=== PATIENT | female | born 1940 | race Caucasian/White ===

== ENCOUNTER 2018-10-07 15:45 | Outpatient (REF) | payer OTHER, SELFPAY ==
[2018-10-07 23:03] LABS: ALT 31 U/L (12-78); AST 27 U/L (15-37); Albumin 3.8 g/dL (3.4-5.0); Alkaline Phosphatase 186 U/L (46-116); Anion Gap 7.6 mmol/L (3-11); BUN 23 mg/dL (7-18); Bilirubin, Total 0.4 mg/dL (0.2-1.0); CO2 33.4 mmol/L (21.0-32.0); CREATININE 0.88 mg/dL (0.55-1.02); Calcium 8.7 mg/dL (8.5-10.1); Chloride 97 mmol/L (98-107); Glucose 102 mg/dL (70-100); Magnesium 1.9 mg/dL (1.8-2.4); Potassium 3.2 mmol/L (3.5-5.1); Sodium 138 mmol/L (136-145); Total Protein 7.3 g/dL (6.4-8.2); Vitamin B12 356 pg/mL (193-986)
== END 2018-10-07 16:05 ==
LOC: NCHCN 15:45
PROVIDERS: PCP Family Medicine; Visit Provider Nurse Practitioner Family
DX: E78.5 Hyperlipidemia, unspecified (principal); I10 Essential (primary) hypertension; R60.0 Localized edema; I82.90 Acute embolism and thrombosis of unspecified vein; Z79.01 Long term (current) use of anticoagulants; E66.9 Obesity, unspecified
CPT/HCPCS: 80053; 82607; 83735

== ENCOUNTER 2018-10-15 14:50 | Outpatient (REF) | payer OTHER, SELFPAY ==
[2018-10-15 15:31] LABS: Potassium 3.7 mmol/L (3.5-5.1)
== END 2018-10-15 15:10 ==
LOC: NCHCN 14:50
PROVIDERS: PCP Family Medicine; Visit Provider Nurse Practitioner Family
DX: E87.6 Hypokalemia (principal)
CPT/HCPCS: 84132

== ENCOUNTER 2019-01-17 11:25 | Outpatient (REF) | payer OTHER, SELFPAY | END 2019-01-17 11:45 | LOC: NCHCN 11:25 | PROVIDERS: PCP Nurse Practitioner Family; Visit Provider Nurse Practitioner Family | DX: R06.09 Other forms of dyspnea; E87.6 Hypokalemia; K21.9 Gastro-esophageal reflux disease without esophagitis; I10 Essential (primary) hypertension | CPT/HCPCS: 84132 ==

== ENCOUNTER 2019-01-22 11:52 | Outpatient (REF) | payer OTHER, SELFPAY ==
[2019-01-22 21:59] LABS: Potassium 3.4 mmol/L (3.5-5.1)
== END 2019-01-22 12:12 ==
LOC: NCHCN 11:52
PROVIDERS: PCP Nurse Practitioner Family; Visit Provider Nurse Practitioner Family
DX: E87.6 Hypokalemia (principal)
CPT/HCPCS: 84132

== ENCOUNTER 2019-01-30 16:19 | Outpatient (REF) | payer OTHER, SELFPAY ==
[2019-01-30 21:32] LABS: Anion Gap 7.4 mmol/L (3-11); BUN 18 mg/dL (7-18); CO2 31.6 mmol/L (21.0-32.0); CREATININE 0.77 mg/dL (0.55-1.02); Calcium 8.7 mg/dL (8.5-10.1); Chloride 103 mmol/L (98-107); Glucose 98 mg/dL (70-100); Potassium 4.1 mmol/L (3.5-5.1); Sodium 142 mmol/L (136-145)
== END 2019-01-30 16:39 ==
LOC: NCHCN 16:19
PROVIDERS: PCP Nurse Practitioner Family; Visit Provider Nurse Practitioner Family
DX: I10 Essential (primary) hypertension (principal)
CPT/HCPCS: 80048

== ENCOUNTER 2019-04-18 13:19 | Outpatient (REF) | payer OTHER, SELFPAY ==
[2019-04-18 21:15] LABS: Calcium 8.9 mg/dL (8.5-10.1); Potassium 3.5 mmol/L (3.5-5.1)
[2019-04-18 21:26] LABS: GGT 35 U/L (5-55)
[2019-04-21 07:53] LABS: Vitamin D 25 Total 17.1 ng/ml (30-100)
== END 2019-04-18 13:39 ==
LOC: NCHCN 13:19
PROVIDERS: PCP Nurse Practitioner Family; Visit Provider Nurse Practitioner Family
DX: I10 Essential (primary) hypertension (principal); E78.5 Hyperlipidemia, unspecified; E87.6 Hypokalemia; R74.8 Abnormal levels of other serum enzymes; R06.09 Other forms of dyspnea; R60.0 Localized edema; K21.9 Gastro-esophageal reflux disease without esophagitis; I82.90 Acute embolism and thrombosis of unspecified vein
CPT/HCPCS: 82306; 82310; 82977; 84100; 84132

== ENCOUNTER 2019-10-27 01:39 | Outpatient (CLI) | payer OTHER, SELFPAY ==
[2019-10-27 12:18] LABS: INR 1.9 (0.9-1.1); Prothrombin Time 19.2 sec (9.3-11.0)
[2019-10-27 12:57] LABS: CREATININE 1.07 mg/dL (0.55-1.02); Calculated LDL 148 mg/dL; Cholesterol 243 mg/dL (<200); Estimated GFR 49.72 (mL/min/1.73m2); HDL Cholesterol 48 mg/dL (40-60); Potassium 3.3 mmol/L (3.5-5.1); Triglyceride 237 mg/dL (<150)
== END 2019-10-27 01:59 ==
PROVIDERS: PCP Nurse Practitioner; Visit Provider Nurse Practitioner
DX: I10 Essential (primary) hypertension (principal); E78.00 Pure hypercholesterolemia, unspecified; Z86.718 Personal history of other venous thrombosis and embolism; Z79.01 Long term (current) use of anticoagulants
CPT/HCPCS: 36415; 80061; 82565; 84132; 85610

== ENCOUNTER 2019-11-06 07:11 | Outpatient (CLI) | payer OTHER, SELFPAY ==
[2019-11-06 11:15] LABS: INR 1.9 (0.9-1.1); Prothrombin Time 18.9 sec (9.3-11.0)
== END 2019-11-06 07:31 ==
PROVIDERS: PCP Nurse Practitioner; Visit Provider Nurse Practitioner
DX: I82.4Z9 Acute embolism and thrombosis of unspecified deep veins of unspecified distal lower extremity (principal); Z79.01 Long term (current) use of anticoagulants
CPT/HCPCS: 36415; 85610

== ENCOUNTER 2019-11-13 08:00 | Outpatient (CLI) | payer OTHER, SELFPAY ==
[2019-11-13 10:26] LABS: Potassium 3.5 mmol/L (3.5-5.1)
[2019-11-13 10:37] LABS: INR 1.6 (0.9-1.1); Prothrombin Time 15.7 sec (9.3-11.0)
== END 2019-11-13 08:20 ==
PROVIDERS: PCP Nurse Practitioner; Visit Provider Nurse Practitioner
DX: E87.6 Hypokalemia (principal); I82.409 Acute embolism and thrombosis of unspecified deep veins of unspecified lower extremity; Z79.01 Long term (current) use of anticoagulants
CPT/HCPCS: 36415; 84132; 85610

== ENCOUNTER 2019-11-20 10:35 | Outpatient (CLI) | payer OTHER, SELFPAY ==
[2019-11-20 11:08] LABS: INR 1.9 (0.9-1.1); Prothrombin Time 18.5 sec (9.3-11.0)
== END 2019-11-20 10:55 ==
PROVIDERS: PCP Nurse Practitioner; Visit Provider Nurse Practitioner
DX: I82.409 Acute embolism and thrombosis of unspecified deep veins of unspecified lower extremity (principal); Z79.01 Long term (current) use of anticoagulants
CPT/HCPCS: 36415; 85610

== ENCOUNTER 2019-11-27 02:23 | Outpatient (CLI) | payer OTHER, SELFPAY ==
[2019-11-27 11:32] LABS: Prothrombin Time 14.4 sec (9.3-11.0)
[2019-11-27 11:55] LABS: INR 1.4 (0.9-1.1)
== END 2019-11-27 02:43 ==
PROVIDERS: PCP Nurse Practitioner; Visit Provider Nurse Practitioner
DX: I82.409 Acute embolism and thrombosis of unspecified deep veins of unspecified lower extremity (principal); Z79.01 Long term (current) use of anticoagulants
CPT/HCPCS: 36415; 85610

== ENCOUNTER 2019-11-28 00:38 | Outpatient (CLI) | payer OTHER, SELFPAY ==
--- NOTE | 2019-11-28 07:39 | DI.MAMMO_ITS ---
EXAM: MG MAMMO SCREENING CLINICAL HISTORY: Screening, Z12.39 TECHNIQUE: Mammograms were interpreted according to the usual protocol including computer analysis w [employer] system, tomosynthesis and C-view imaging. COMPARISON: February 2017 FINDINGS: The breasts are of moderate density with fairly symmetrical distribution of fibroglandular tissue. N o dominant mass or clumped microcalcification is identified in either breast. Current examination is compared with previous examinations including February 2017 and there has been no gross interval change in appearance in comparison with the previous studies. IMPRESSION: No specific evidence of malignancy at this time. Routine screening examinations are suggested at yea rly intervals in this age group according to the ACS/ACR guidelines. Category 1, breast density categ ory B. BI-RADS Cat 1 - Negative Breast Density - Category B - Scattered areas of fibroglandular density
== END 2019-11-28 00:58 ==
PROVIDERS: PCP Nurse Practitioner; Visit Provider Nurse Practitioner
DX: Z12.31 Encounter for screening mammogram for malignant neoplasm of breast (principal)
CPT/HCPCS: 77063; 77067

== ENCOUNTER 2019-12-04 01:10 | Outpatient (CLI) | payer OTHER, SELFPAY ==
[2019-12-04 11:57] LABS: INR 1.6 (0.9-1.1); Prothrombin Time 15.9 sec (9.3-11.0)
== END 2019-12-04 01:30 ==
PROVIDERS: PCP Nurse Practitioner; Visit Provider Nurse Practitioner
DX: I82.409 Acute embolism and thrombosis of unspecified deep veins of unspecified lower extremity (principal); Z79.01 Long term (current) use of anticoagulants
CPT/HCPCS: 36415; 85610

== ENCOUNTER 2019-12-11 02:45 | Outpatient (CLI) | payer OTHER, SELFPAY ==
[2019-12-11 11:47] LABS: INR 2.1 (0.9-1.1); Prothrombin Time 20.6 sec (9.3-11.0)
== END 2019-12-11 03:05 ==
PROVIDERS: PCP Nurse Practitioner; Visit Provider Nurse Practitioner
DX: I82.409 Acute embolism and thrombosis of unspecified deep veins of unspecified lower extremity (principal); Z79.01 Long term (current) use of anticoagulants
CPT/HCPCS: 36415; 85610

== ENCOUNTER 2019-12-18 03:15 | Outpatient (CLI) | payer OTHER, SELFPAY ==
[2019-12-18 11:59] LABS: INR 1.9 (0.9-1.1); Prothrombin Time 18.9 sec (9.3-11.0)
== END 2019-12-18 03:35 ==
PROVIDERS: PCP Nurse Practitioner; Visit Provider Nurse Practitioner
DX: I82.409 Acute embolism and thrombosis of unspecified deep veins of unspecified lower extremity (principal); Z79.01 Long term (current) use of anticoagulants
CPT/HCPCS: 36415; 85610

== ENCOUNTER 2020-01-15 02:27 | Outpatient (CLI) | payer OTHER, SELFPAY ==
[2020-01-15 11:02] LABS: INR 2.1 (0.9-1.1); Prothrombin Time 20.3 sec (9.3-11.0)
== END 2020-01-15 02:47 ==
PROVIDERS: PCP Nurse Practitioner; Visit Provider Nurse Practitioner
DX: I82.409 Acute embolism and thrombosis of unspecified deep veins of unspecified lower extremity (principal); Z79.01 Long term (current) use of anticoagulants
CPT/HCPCS: 36415; 85610

== ENCOUNTER 2020-05-06 16:40 | Outpatient (REF) | payer SELFPAY | END 2020-05-06 17:00 | LOC: LBN 16:40 | PROVIDERS: PCP Nurse Practitioner; Visit Provider Nurse Practitioner | DX: R30.0 Dysuria (principal) | CPT/HCPCS: 87077; 87086; 87186 ==

== ENCOUNTER 2020-05-19 01:28 | Outpatient (CLI) | payer OTHER, SELFPAY ==
[2020-05-19 13:07] LABS: Calculated LDL 121 mg/dL (<100); Cholesterol 218 mg/dL (<200); Estimated GFR 53.76 (mL/min/1.73m2); HDL Cholesterol 45 mg/dL (40-60); Potassium 3.4 mmol/L (3.5-5.1); Triglyceride 261 mg/dL (<150)
[2020-05-19 13:14] LABS: Hemoglobin A1C 5.6 % (3.8-5.6)
== END 2020-05-19 01:48 ==
PROVIDERS: PCP Nurse Practitioner; Visit Provider Nurse Practitioner
DX: I10 Essential (primary) hypertension (principal); E78.5 Hyperlipidemia, unspecified; Z13.1 Encounter for screening for diabetes mellitus
CPT/HCPCS: 36415; 80061; 82565; 83036; 84132

== ENCOUNTER 2020-09-10 08:43 | Outpatient (CLI) | payer OTHER, SELFPAY ==
[2020-09-10 12:37] LABS: INR 1.7 (0.9-1.1); Prothrombin Time 16.7 sec (9.3-11.0)
== END 2020-09-10 09:03 ==
PROVIDERS: PCP Nurse Practitioner; Visit Provider Nurse Practitioner
DX: I82.409 Acute embolism and thrombosis of unspecified deep veins of unspecified lower extremity (principal); Z79.01 Long term (current) use of anticoagulants
CPT/HCPCS: 36415; 85610

== ENCOUNTER 2020-12-29 02:24 | Outpatient (CLI) | payer OTHER, SELFPAY ==
[2020-12-29 12:47] LABS: INR 2.1 (0.9-1.1); Prothrombin Time 20.7 sec (9.3-11.0)
== END 2020-12-29 02:25 | disposition home or self-care (01) ==
LOC: LOS 02:24
PROVIDERS: PCP Nurse Practitioner; Visit Provider Nurse Practitioner
DX: Z79.01 Long term (current) use of anticoagulants (principal); Z86.718 Personal history of other venous thrombosis and embolism
CPT/HCPCS: 36415; 85610

== ENCOUNTER 2021-02-04 01:37 | Outpatient (CLI) | payer OTHER, SELFPAY ==
[2021-02-04 12:44] LABS: INR 2.5 (0.9-1.1); Prothrombin Time 24.5 sec (9.3-11.0)
== END 2021-02-04 01:38 | disposition home or self-care (01) ==
PROVIDERS: PCP Nurse Practitioner; Visit Provider Nurse Practitioner
DX: Z86.718 Personal history of other venous thrombosis and embolism (principal); Z79.01 Long term (current) use of anticoagulants
CPT/HCPCS: 36415; 85610

== ENCOUNTER 2021-03-04 01:47 | Outpatient (CLI) | payer OTHER, SELFPAY ==
[2021-03-04 13:14] LABS: INR 2.1 (0.9-1.1); Prothrombin Time 20.6 sec (9.3-11.0)
== END 2021-03-04 01:48 | disposition home or self-care (01) ==
LOC: LOS 01:48
PROVIDERS: PCP Nurse Practitioner; Visit Provider Nurse Practitioner
DX: Z86.718 Personal history of other venous thrombosis and embolism (principal); Z79.01 Long term (current) use of anticoagulants
CPT/HCPCS: 36415; 85610

== ENCOUNTER 2022-03-31 09:21 | Outpatient (CLI) | payer OTHER, SELFPAY ==
[2022-03-31 12:43] LABS: CREATININE 1.3 mg/dL (0.55-1.02); Calculated LDL 276 mg/dL (<100); Cholesterol 378 mg/dL (<200); Estimated GFR 39.51 (mL/min/1.73m2); HDL Cholesterol 55 mg/dL (40-60); Potassium 4.6 mmol/L (3.5-5.1); Triglyceride 237 mg/dL (<150)
== END 2022-03-31 09:22 | disposition home or self-care (01) ==
LOC: LOS 09:22
PROVIDERS: PCP Nurse Practitioner; Referring Provider Family Medicine; Visit Provider Family Medicine
DX: I10 Essential (primary) hypertension (principal); Z13.6 Encounter for screening for cardiovascular disorders
CPT/HCPCS: 36415; 80061; 82565; 84132

== ENCOUNTER 2022-07-14 17:41 | Outpatient (REF) | payer OTHER, SELFPAY ==
[2022-07-14 19:23] LABS: Anion Gap 10.2 mmol/L (3-11); BUN 30 mg/dL (7-18); CO2 27.8 mmol/L (21.0-32.0); Calculated LDL 141 mg/dL (<100); Chloride 103 mmol/L (98-107); Cholesterol 228 mg/dL (<200); Estimated GFR 56.95 (mL/min/1.73m2); Glucose 91 mg/dL (74-106); HDL Cholesterol 52 mg/dL (40-60); Potassium 3.8 mmol/L (3.5-5.1); Sodium 141 mmol/L (136-145); Triglyceride 178 mg/dL (<150)
== END 2022-07-14 17:42 | disposition home or self-care (01) ==
LOC: NCHCN 17:41
PROVIDERS: PCP Nurse Practitioner; Visit Provider Nurse Practitioner Family
DX: E78.5 Hyperlipidemia, unspecified (principal); I10 Essential (primary) hypertension; Z00.00 Encounter for general adult medical examination without abnormal findings
CPT/HCPCS: 80048; 80061

== ENCOUNTER 2022-10-25 11:25 | Outpatient (REF) | payer OTHER, SELFPAY ==
[2022-10-25 13:22] LABS: Bilirubin Negative (Negative); Blood Trace-lysed (Negative); Clarity Sl Cloudy (Clear); Glucose Negative (Negative); Ketones Negative (Negative); Leukocyte Esterase Negative (Negative); Nitrite Negative (Negative); Specific Gravity 1.015 (1.005-1.025); Urobilinogen 0.2 EU/dL (Up TO 0.2); pH 5.5 (5-8)
[2022-10-25 13:31] LABS: Bacteria Rare HPF (Negative); C & S Indicated? No; Casts Negative LPF (Negative); Crystals Moderate Amorphous HPF (Negative); Epithelial Cells Moderate HPF (Negative); Mucus Trace (Negative); RBC 0-2 HPF (0-2); WBC Negative HPF (0-5)
== END 2022-10-25 11:26 | disposition home or self-care (01) ==
LOC: LBN 11:25
PROVIDERS: PCP Nurse Practitioner Family; Visit Provider Physician Assistant
DX: R39.89 Other symptoms and signs involving the genitourinary system (principal)
CPT/HCPCS: 81003; 81015

== ENCOUNTER 2022-11-05 07:50 | Observation (INO) | payer MEDICARE, OTHER, SELFPAY ==
[2022-11-05] VITALS (57 sets, daily range): BP systolic 105–145; BP diastolic 49–87; PULSE 70–89; RESP 13–25; TEMP 36.5–37.2; O2SAT 94–100
--- NOTE | 2022-11-05 08:45 | RT.EKG_ITS ---
APPROVED REPORT Exam: Resting ECG Reason for Exam: weakness Patient Location: E HR:71 bpm ECG Measurements Heart Rate 71 AXIS WY 187 P 49 QRSd 90 QRS 4 QT 374 T 18 QTc 408 Conclusion Sinus rhythm...normal P axis, V-rate 60- 99
--- NOTE | 2022-11-05 08:58 | W.ED.GENAD ---
Discharge Plan Disposition Patient Disposition: Admit to [facility] Condition: Stable Discharge Details Chief Complaint: Fall/Non TraumaCriteria Clinical Impression: Bilateral leg weakness, Fall, Hypomagnesemia, Subtherapeutic anticoagulation Primary Care Provider: Faustino Berry ED Provider: Patrick Pearson Home Meds and New Rx's Prescriptions: No Action triamterene-hydrochlorothiazid 37.5-25 mg tablet 0.5 tab PO DAILY Qty: 90 4RF esomeprazole magnesium [Nexium] 20 mg capsule,delayed release(DR/EC) 20 mg PO DAILY Qty: 90 3RF potassium chloride 20 mEq tablet extended release 20 meq PO DAILY Qty: 90 4RF lisinopril 20 mg tablet 20 mg PO DAILY Qty: 90 4RF atorvastatin 40 mg tablet 40 mg PO DAILY warfarin 2.5 mg tablet 2.5 mg PO QPM Protocol: Dose Management Condition: Sunday Dose/Route: 2.5 mg Instruction: 1 x 2.5 mg tablet Condition: Sunday Dose/Route: 2.5 mg Instruction: 1 x 2.5 mg tablet Condition: Sunday Dose/Route: 2.5 mg Instruction: 1 x 2.5 mg tablet Condition: Sunday Dose/Route: 2.5 mg Instruction: 1 x 2.5 mg tablet Condition: Dose/Route: 5 mg Instruction: 2 x 2.5 mg tablets Condition: Sunday Dose/Route: 2.5 mg Instruction: 1 x 2.5 mg tablet Condition: Sunday Dose/Route: 2.5 mg Instruction: 1 x 2.5 mg tablet Protocol Text: Adjustment Start Date: 11/02/22 INR Value: 1.5 INR Date: 11/02/22 Recheck Date: 11/16/22 clobetasol-emollient 0.05 % cream 1 applic Topical HS PRN Medical Decision Making 900 --82-year-old female with history of multiple medical problems including hypertension, DVT, on Coumadin, hyperlipidemia, obesity, uses walker at baseline, here with weakness of bilateral lower extremities with 1+ pitting edema. Patient did fall today but has no injury on examination. Patient has no headache, neck pain or back pain or tenderness. Patient is on Coumadin but I suspect her INR will be subtherapeutic as she has been inappropriately taking less Coumadin than prescribed. --Screening EKG was reviewed and interpreted by me: Please report, sinus rhythm 71 bpm, no STEMI, nondiagnostic. 1300 --labs reviewed: Leukocytosis noted. Hypomagnesemia noted. Initial urinalysis was contaminated with epithelial cells despite it being a cath specimen. No significant RBCs or WBCs. A second catheterized specimen was obtained and there were significant RBCs I suspect secondary to trauma of the initial catheterization. Chest x-ray was reviewed and interpreted by radiology: No active disease in the chest. Patient was given magnesium 1 g IV and reassessed and did have improvement in strength although continues have difficulty with ambulation. -- Patient attempted ambulate with nursing and needed assistance. Unable to transition safely to commode. I attempted to contact care management and not available. Plan to hospitalize as observation for PT evaluation. Patient does have hypomagnesemia and subtherapeutic INR. I called and spoke with hospitalist on-call, Dr. Hednerson, discussed ED presentation and course, he will admit the patient. Lab Data Lab results reviewed: Yes I reviewed the patient's lab results. Labs: Laboratory Tests Range/Units 11/05/22 11/05/22 11/05/22 09:08 09:08 09:08 WBC (4.4-10.8) 10^3/uL RBC (3.93-5.22) 10^6/uL Hgb (11.2-15.7) g/dL Hct (36.0-46.0) % MCV (80-95) fL MCH (27.0-33.0) pg MCHC (32.0-36.0) % RDW (11.7-14.6) % Plt Count (130-400) 10^3/uL MPV (8.0-11.0) fL Immature Gran % Neutrophils % Lymphocytes % Monocytes % Eosinophils % Basophils % Nucleated RBC % (0.0-0.3) % Absolute Neutrophils (1.2-6.7) 10^3/uL Absolute Lymphocytes (1.2-3.4) 10^3/uL Absolute Monocytes (0.1-0.8) 10^3/uL Absolute Eosinophils (0.0-0.7) 10^3/uL Absolute Basophils (0.0-0.2) 10^3/uL PT (9.3-11.0) sec 15.7 H INR (0.9-1.1) 1.6 H Sodium (136-145) mmol/L 140 Potassium (3.5-5.1) mmol/L 3.7 Chloride (98-107) mmol/L 106 Carbon Dioxide (21.0-32.0) mmol/L 25.8 Anion Gap (3-11) mmol/L 8.2 BUN (7-18) mg/dL 27 H Creatinine (0.55-1.02) mg/dL 1.1 H Est GFR (CKD-EPI 2020) (mL/min/1.73m2) 50.80 Glucose (74-106) mg/dL 104 Calcium (8.5-10.1) mg/dL 9.1 Magnesium Cancelled 1.7 L Total Bilirubin (0.2-1.0) mg/dL 0.4 AST (15-37) U/L 24 ALT (14-59) U/L 22 Alkaline Phosphatase (46-116) U/L 179 H Troponin I (<or=60) ng/L < 50 NT-Pro-B Natriuret Pep Cancelled 195 Total Protein (6.4-8.2) g/dL 7.0 Albumin (3.4-5.0) g/dL 3.5 Urine Color (Yellow) Urine Clarity (Clear) Urine pH (5-8) Ur Specific [place] (1.005-1.025) Urine Protein (Negative) mg/dL Urine Ketones (Negative) mg/dL Urine Blood (Negative) Urine Nitrite (Negative) Urine Bilirubin (Negative) Urine Urobilinogen (Up TO 0.2) EU/dL Ur Leukocyte Esterase (Negative) Urine RBC (0-2) HPF Urine WBC (0-5) HPF Ur Epithelial Cells (Negative) HPF Urine Crystals (Negative) HPF Urine Bacteria (Negative) HPF Urine Casts (Negative) LPF Urine Mucus (Negative) Ur Culture Indicated? Urine Glucose (Negative) mg/dL Range/Units 11/05/22 11/05/22 11/05/22 09:08 09:30 10:45 WBC (4.4-10.8) 10^3/uL 13.04 H RBC (3.93-5.22) 10^6/uL 3.96 Hgb (11.2-15.7) g/dL 11.7 Hct (36.0-46.0) % 36.2 MCV (80-95) fL 91 MCH (27.0-33.0) pg 29.5 MCHC (32.0-36.0) % 32.3 RDW (11.7-14.6) % 12.5 Plt Count (130-400) 10^3/uL 213 MPV (8.0-11.0) fL 9.3 Immature Gran % 0.4 Neutrophils % 88.4 Lymphocytes % 6.0 Monocytes % 4.8 Eosinophils % 0.2 Basophils % 0.2 Nucleated RBC % (0.0-0.3) % 0.0 Absolute Neutrophils (1.2-6.7) 10^3/uL 11.53 H Absolute Lymphocytes (1.2-3.4) 10^3/uL 0.78 L Absolute Monocytes (0.1-0.8) 10^3/uL 0.63 Absolute Eosinophils (0.0-0.7) 10^3/uL 0.03 Absolute Basophils (0.0-0.2) 10^3/uL 0.03 PT (9.3-11.0) sec INR (0.9-1.1) Sodium (136-145) mmol/L Potassium (3.5-5.1) mmol/L Chloride (98-107) mmol/L Carbon Dioxide (21.0-32.0) mmol/L Anion Gap (3-11) mmol/L BUN (7-18) mg/dL Creatinine (0.55-1.02) mg/dL Est GFR (CKD-EPI 2020) (mL/min/1.73m2) Glucose (74-106) mg/dL Calcium (8.5-10.1) mg/dL Magnesium Total Bilirubin (0.2-1.0) mg/dL AST (15-37) U/L ALT (14-59) U/L Alkaline Phosphatase (46-116) U/L Troponin I (<or=60) ng/L NT-Pro-B Natriuret Pep Total Protein (6.4-8.2) g/dL Albumin (3.4-5.0) g/dL Urine Color (Yellow) Yellow Yellow Urine Clarity (Clear) Clear Sl Cloudy Urine pH (5-8) 5.5 5.5 Ur Specific [place] (1.005-1.025) >= 1.030 H >= 1.030 H Urine Protein (Negative) mg/dL Negative Negative Urine Ketones (Negative) mg/dL Negative Negative Urine Blood (Negative) Trace-intact H Large H Urine Nitrite (Negative) Negative Negative Urine Bilirubin (Negative) Negative Negative Urine Urobilinogen (Up TO 0.2) EU/dL 0.2 0.2 Ur Leukocyte Esterase (Negative) Negative Negative Urine RBC (0-2) HPF 0-2 >50 H Urine WBC (0-5) HPF 3-5 5-10 Ur Epithelial Cells (Negative) HPF Moderate Many Urine Crystals (Negative) HPF Negative Negative Urine Bacteria (Negative) HPF Moderate Moderate Urine Casts (Negative) LPF Negative Negative Urine Mucus (Negative) Trace Trace Ur Culture Indicated? No/Sq. Contamination No/Sq. Contamination Urine Glucose (Negative) mg/dL Negative Negative Range/Units 11/05/22 12:18 WBC (4.4-10.8) 10^3/uL RBC (3.93-5.22) 10^6/uL Hgb (11.2-15.7) g/dL Hct (36.0-46.0) % MCV (80-95) fL MCH (27.0-33.0) pg MCHC (32.0-36.0) % RDW (11.7-14.6) % Plt Count (130-400) 10^3/uL MPV (8.0-11.0) fL Immature Gran % Neutrophils % Lymphocytes % Monocytes % Eosinophils % Basophils % Nucleated RBC % (0.0-0.3) % Absolute Neutrophils (1.2-6.7) 10^3/uL Absolute Lymphocytes (1.2-3.4) 10^3/uL Absolute Monocytes (0.1-0.8) 10^3/uL Absolute Eosinophils (0.0-0.7) 10^3/uL Absolute Basophils (0.0-0.2) 10^3/uL PT (9.3-11.0) sec INR (0.9-1.1) Sodium (136-145) mmol/L Potassium (3.5-5.1) mmol/L Chloride (98-107) mmol/L Carbon Dioxide (21.0-32.0) mmol/L Anion Gap (3-11) mmol/L BUN (7-18) mg/dL Creatinine (0.55-1.02) mg/dL Est GFR (CKD-EPI 2020) (mL/min/1.73m2) Glucose (74-106) mg/dL Calcium (8.5-10.1) mg/dL Magnesium Total Bilirubin (0.2-1.0) mg/dL AST (15-37) U/L ALT (14-59) U/L Alkaline Phosphatase (46-116) U/L Troponin I (<or=60) ng/L < 50 NT-Pro-B Natriuret Pep Total Protein (6.4-8.2) g/dL Albumin (3.4-5.0) g/dL Urine Color (Yellow) Urine Clarity (Clear) Urine pH (5-8) Ur Specific [place] (1.005-1.025) Urine Protein (Negative) mg/dL Urine Ketones (Negative) mg/dL Urine Blood (Negative) Urine Nitrite (Negative) Urine Bilirubin (Negative) Urine Urobilinogen (Up TO 0.2) EU/dL Ur Leukocyte Esterase (Negative) Urine RBC (0-2) HPF Urine WBC (0-5) HPF Ur Epithelial Cells (Negative) HPF Urine Crystals (Negative) HPF Urine Bacteria (Negative) HPF Urine Casts (Negative) LPF Urine Mucus (Negative) Ur Culture Indicated? Urine Glucose (Negative) mg/dL HPI General Mode of arrival: ambulatory. Date/Time Provider Initiated Documentation: 11/05/22 08:07. Limitations to Documentation: no limitations. Information obtained by: patient. HPI Narrative: 82-year-old female presents with chief complaint of weakness. Patient notes lower extremity weakness that started yesterday and has persisted. Worse this morning. Patient notes she has inability to move her legs bilaterally. Legs feel heavy. Symptoms are severe. No modifiers. She states when she tried to get up out of bed today she could not ambulate and fell to the floor. She did bump her head but did not lose consciousness and has had no headache. She denies injury during the fall. She has no neck pain or back pain. Patient uses walker at baseline. Patient does note associated increased swelling of the legs and decreased urination recently. She denies dysuria. Related Data Home Medications Medication Instructions Recorded Confirmed lisinopril 20 mg tablet 20 mg PO DAILY #90 tabs 12/12/21 11/05/22 esomeprazole magnesium 20 mg 20 mg PO DAILY #90 tab-caps 12/27/21 11/05/22 capsule,delayed release (Nexium) potassium chloride 20 mEq 20 meq PO DAILY #90 tabs 01/24/22 11/05/22 tablet,extended release triamterene 37.5 0.5 tab PO DAILY #90 tab-caps 10/26/22 11/05/22 mg-hydrochlorothiazide 25 mg tablet atorvastatin 40 mg tablet 40 mg PO DAILY 11/05/22 11/05/22 clobetasol-emollient 0.05 % 1 applic topical HS PRN 11/05/22 11/05/22 topical cream warfarin 2.5 mg tablet 2.5 mg PO QPM 11/05/22 11/05/22 Previous Rx's Medication Instructions Recorded lisinopril 20 mg tablet 20 mg PO DAILY #90 tabs 12/12/21 esomeprazole magnesium 20 mg 20 mg PO DAILY #90 tab-caps 12/27/21 capsule,delayed release (Nexium) potassium chloride 20 mEq 20 meq PO DAILY #90 tabs 01/24/22 tablet,extended release triamterene 37.5 0.5 tab PO DAILY #90 tab-caps 10/26/22 mg-hydrochlorothiazide 25 mg tablet Allergies Allergy/AdvReac Type Severity Reaction Status Date / Time No Known Allergies Allergy Verified 11/05/22 07:59 General Stated Complaint: Fall/Non TraumaCriteria ELLE: 3 Review of Systems All systems reviewed & are unremarkable except as noted in HPI and below Constitutional Constitutional: Denies chills and Denies fever(s) Comments: Patient did experience episode of diaphoresis last night Eyes Eyes: Denies loss of vision Cardiovascular Cardiovascular: Denies rapid heart rate, Reports leg edema and Denies dyspnea Respiratory Respiratory: Denies dyspnea Gastrointestinal Gastrointestinal: Denies abdominal pain, Denies nausea and Denies vomiting Genitourinary Genitourinary: Reports as per HPI, Denies hematuria, Denies urinary hesitancy and Denies urinary urgency Musculoskeletal Musculoskeletal: Denies tingling Neurologic Neurologic: Reports as per HPI, Reports localized weakness (legs bilateral), Denies loss of vision, Denies sensory deficit and Denies tingling PFSH All Active Problems (Updated 11/05/22 @ 14:46 by Patrick Pearson MD) Bilateral leg weakness (Acute) Fall (Acute) Hypomagnesemia (Acute) Subtherapeutic anticoagulation (Acute) Leg edema, left (Acute) 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 (Chronic) Peripheral neuropathy (Chronic) undetermined etiology. Varicose veins (Chronic) Chronic diarrhea (Chronic) managed with metamucil with good effect. GERD (gastroesophageal reflux disease) (Chronic) Hypertension (Chronic) Chronic anticoagulation (Chronic) History of multiple DVT, goal INR 2-to 3 History of DVT (deep vein thrombosis) (Chronic) Hyperlipidemia (Chronic) Severe obesity (BMI 35.0-39.9) with comorbidity (Chronic) Leg weakness, bilateral (Acute) At risk for falls (Acute) Medical History Adenomatous colon polyp Corns/callosities Eczema Lactose intolerance Onychomycosis Venous stasis dermatitis Surgical History Cholecystectomy January 2005 Colonoscopy - [facility] [place] 2010 exploratory lung surgery 1985 squamous papilloma excision of vocal cord 1998 Vaginal hysterectomy 1984- with bladder lift Family History Mother , age 77 No problems noted. Father , age 67 No problems noted. Brother , age 74 No problems noted. Brother , age 83 No problems noted. Social History Smoking/Tobacco Use Status: Former Tobacco Use tobacco type: cigarettes Quit Date: 11/05/80 Tobacco: How many years used: 20 Smoking risk assessment performed?: Yes Alcohol Intake: never Drug use: Never Household members: other Details: Grandson Housing: house Communication Needs: Corrective Lenses Do you need help understanding health information?: Often Pets and animals: Yes Pets and animals: dog(s) Sexually active: No Do you think of yourself as: straight/heterosexual Current gender identity: female What is your relationship status?: How often do you talk on the phone with friends or family?: three or more times per week How often do you get together with friends or relatives?: three or more times per week How often do you attend denominational or hindu services?: 1-3 times per year Do you belong to any clubs or organized social groups?: no Panel score (0-1 are the most socially isolated patients): 1 What type of physical activity do you participate in: decline to answer Duration: decline to answer Frequency: decline to answer Echo/Judaism: [employer] Special echo needs: No Seatbelt use: always Drive intox or ride w/intox escort car driver: No Do you feel safe at home: Yes Do you feel safe in your relationship?: Yes Exam Const General: cooperative and no acute distress HENMT Mouth: moist mucous membranes Eyes Conjunctivae: normal conjunctivae Sclera: normal sclerae Neck Neck: trachea midline and supple Resp Auscultation: clear to auscultation bilaterally, no rales, no rhonchi and no wheezes Cardio Rate: regular rate and not tachycardic Rhythm: regular rhythm GI Palpation: soft, not firm, no guarding, no masses, not rigid and nontender Skin General skin exam: no rashes or lesions noted Neuro General: patient alert, patient awake and tone normal Cranial Nerves: CN's II-XI intact bilaterally Cognition: normal cognition Motor: strength abnormal (3/5 bilateral LEs) and other (5/5 UEs bilateral) Extrem General: no calf tenderness and edema Laterality: bilateral (1+ pitting) Psych Appearance: grossly normal Mental Status: mental status grossly normal Course Vital Signs Vital signs: Vital Signs Temperature 36.5 C 11/05/22 07:51 Pulse 84 11/05/22 07:51 Respiratory Rate 16 11/05/22 07:51 Blood Pressure 118/64 11/05/22 07:51 Pulse Oximetry 94 11/05/22 07:51 Temperature 36.5 C 11/05/22 07:51 Temperature Source Skin 11/05/22 07:51 Pulse 84 11/05/22 07:51 Respiratory Rate 16 11/05/22 07:51 Respiratory Effort 11/05/22 08:02 Blood Pressure 118/64 11/05/22 07:51 Pulse Oximetry 94 11/05/22 07:51 Oxygen Delivery Method Room Air 11/05/22 07:51 Oxygen Flow Rate 0 11/05/22 07:51 Pain Level 0 11/05/22 07:51
[2022-11-05 09:15] LABS: Abs Immature Grans 0.05 10^3/uL (0.0-0.06); Absolute Basophil Count 0.03 10^3/uL (0.0-0.2); Absolute Lymphocyte Count 0.78 10^3/uL (1.2-3.4); Basophils % 0.2; Eosinophils % 0.2; HCT 36.2 % (36.0-46.0); HGB 11.7 g/dL (11.2-15.7); Immature Grans % 0.4; MCH 29.5 pg (27.0-33.0); MCHC 32.3 % (32.0-36.0); MCV 91 fL (80-95); MPV 9.3 fL (8.0-11.0); Monocytes % 4.8; Neutrophils % 88.4; Platelet Count 213 10^3/uL (130-400); RBC 3.96 10^6/uL (3.93-5.22); RDW 12.5 % (11.7-14.6); RDW-SD 41.6 fL; WBC 13.04 10^3/uL (4.4-10.8)
[2022-11-05 09:20] LABS: Absolute Eosinophil Count 0.03 10^3/uL (0.0-0.7); Absolute Monocyte Count 0.63 10^3/uL (0.1-0.8); Absolute Neutrophil Count 11.53 10^3/uL (1.2-6.7)
[2022-11-05 09:27] LABS: INR 1.6 (0.9-1.1); Prothrombin Time 15.7 sec (9.3-11.0)
[2022-11-05 09:37] LABS: ALT 22 U/L (14-59); AST 24 U/L (15-37); Albumin 3.5 g/dL (3.4-5.0); Alkaline Phosphatase 179 U/L (46-116); Anion Gap 8.2 mmol/L (3-11); BUN 27 mg/dL (7-18); Bilirubin, Total 0.4 mg/dL (0.2-1.0); CO2 25.8 mmol/L (21.0-32.0); CREATININE 1.1 mg/dL (0.55-1.02); Calcium 9.1 mg/dL (8.5-10.1); Chloride 106 mmol/L (98-107); Glucose 104 mg/dL (74-106); Magnesium 1.7 mg/dL (1.8-2.4); NT-proBNP 195 pg/mL (<300); Potassium 3.7 mmol/L (3.5-5.1); Sodium 140 mmol/L (136-145); Troponin I < 50 ng/L (<or=60)
[2022-11-05 09:38] LABS: Bilirubin Negative (Negative); Blood Trace-intact (Negative); Clarity Clear (Clear); Glucose Negative (Negative); Ketones Negative (Negative); Leukocyte Esterase Negative (Negative); Nitrite Negative (Negative); Specific Gravity >= 1.030 (1.005-1.025); Urobilinogen 0.2 EU/dL (Up TO 0.2); pH 5.5 (5-8)
[2022-11-05 09:48] LABS: Bacteria Moderate HPF (Negative); C & S Indicated? No/Sq. Contamination; Casts Negative LPF (Negative); Crystals Negative HPF (Negative); Epithelial Cells Moderate HPF (Negative); Mucus Trace (Negative); RBC 0-2 HPF (0-2)
--- NOTE | 2022-11-05 10:30 | DI.RAD_ITS ---
Exam(s) XR CHEST 2V PA LATERAL EXAM: XR CHEST 2V PA LATERAL CLINICAL HISTORY: weakness, leukocytosis TECHNIQUE: 2D digital imaging was performed. COMPARISON: CR CHEST 2 VIEWS PA,LAT from 04/20/2017 FINDINGS: Exam is limited by underpenetration and patient body habitus. HEART: Normal size. Aorta: Not dilated. PULMONARY VASCULATURE: Normal. LUNGS: Clear. PLEURAL SPACE: No pleural effusion or pneumothorax. BONE:Unremarkable for age. IMPRESSION: No acute abnormality. DATA REPOSITORY: RADIATION DOSE DELIVERED:
[2022-11-05 10:57] LABS: Bilirubin Negative (Negative); Blood Large (Negative); Clarity Sl Cloudy (Clear); Glucose Negative (Negative); Ketones Negative (Negative); Leukocyte Esterase Negative (Negative); Nitrite Negative (Negative); Specific Gravity >= 1.030 (1.005-1.025); Urobilinogen 0.2 EU/dL (Up TO 0.2); pH 5.5 (5-8)
[2022-11-05 11:05] LABS: Bacteria Moderate HPF (Negative); C & S Indicated? No/Sq. Contamination; Casts Negative LPF (Negative); Crystals Negative HPF (Negative); Epithelial Cells Many HPF (Negative); Mucus Trace (Negative); RBC >50 HPF (0-2)
[2022-11-05] MEDS: MAGNESIUM SULFATE 1 GM/100 ML BAG IVPB (11:10)
--- NOTE | 2022-11-05 11:41 | DI.VRAD_ITS ---
PROCEDURE INFORMATION: Exam: XR Chest Exam date and time: 11/05/2022 11:06 AM Age: 82 years old Clinical indication: Other: Weakness, leukocytosis TECHNIQUE: Imaging protocol: Radiologic exam of the chest. Views: 2 views. COMPARISON: CR CHEST 2 VIEWS PA,LAT 04/20/2017 12:23 PM FINDINGS: Lungs: The lungs are clear and well aerated bilaterally. There is no consolidation, infiltrate, or pulmonary edema. The pulmonary vasculature is normal in caliber. Pleural spaces: Unremarkable. No pleural effusion or pneumothorax. Heart/Mediastinum: Heart size is normal. Cardiomediastinal contours are stable and satisfactory. There is scattered atherosclerotic mural calcification in the thoracic aorta. Bones/joints: Degenerative changes. No acute osseous abnormality. IMPRESSION: No active disease in the chest. Dictated and Authenticated by: Krystal Ball MD. Ordering:MIGUEL Nguyen MD
[2022-11-05 12:42] LABS: Troponin I < 50 ng/L (<or=60)
--- NOTE | 2022-11-05 16:01 | W.PM.HP.N ---
Date of service: 11/05/22 Time of Service: 16:02 Assessment and Plan Assessment and plan (1) Bilateral leg weakness: Status: Acute Assessment and plan: ED and patient reports unable to ambulate today - will get a PT consult She was able to walk to the bathroom, without a device, not using the wall or chair to steady herself. She then reclined in the chair without assistance (2) Fall: Status: Acute Assessment and plan: Family reports she is not safe ambulating at home, unable to get up on her own - PT consult Family and patient state the bathroom is too narrow for her to manage getting in without a walker - she would benefit from home health PT and OT. (3) Hypomagnesemia: Status: Acute Assessment and plan: 1.7, repleted will check again tomorrow (4) Subtherapeutic anticoagulation: Status: Acute Assessment and plan: INR 1.6 - therapeutic 2-3 Patient reports she cut the tablets in 1/2 - 2.5 mg tablets - she could not say why she did this. Her daughter was at the bedside and we discussed perhaps the daughter should put the patient's medications in the medication daily am/pm box for her and supervise her medications. She agreed this would be a good idea. She would benefit from nursing (5) GERD (gastroesophageal reflux disease): Status: Chronic Assessment and plan: Chronic, no concerns or complaints - maintain home med regime Esomeprazole 20 mg daily. Qualifiers: Esophagitis presence: esophagitis presence not specified Qualified Code(s): K21.9 - Gastro-esophageal reflux disease without esophagitis (6) Hypertension: Status: Chronic Assessment and plan: Chronic, stable, monitor - continue daily lisinopril 20 mg Qualifiers: Hypertension type: essential hypertension Qualified Code(s): I10 - Essential (primary) hypertension (7) Chronic anticoagulation: Status: Chronic Assessment and plan: INR 1.6 - Warfarin s/t DVT - subtherapeutic @ 1.6 - will adjust coumadin (8) History of DVT (deep vein thrombosis): Status: Chronic Assessment and plan: Managed with coumadin - check INR, leg not swollen, good pulses, pink, warm and dry (9) DVT prophylaxis: Status: Acute Assessment and plan: on Warfarin for DVT (10) Discharge planning issues: Status: Acute Assessment and plan: Once stable home with v SNF Discussed with Dr Henderson. History of Present Illness History of Present Illness Chief Complaint: Weakness Narrative: This is an 82-year-old female who presented to the [facility] ED with chief complaint of weakness.? Patient notes lower extremity weakness that started yesterday and has persisted.? Worse this morning.? Patient notes she has inability to move her legs bilaterally, stating her legs feel heavy.?She states when she tried to get up out of bed today she could not ambulate and fell to the floor.? She did bump her head but did not lose consciousness and has had no headache.? She denies injury during the fall.? She has no neck pain or back pain. Patient uses walker at baseline. Patient does note associated increased swelling of the legs and decreased urination recently.? She denies dysuria. Urine was tested in the ED for infection and it was negative. Labs and xrays are unremarkable, except WBC 13.04 and Mag 1.7, this was repleted in the ED. Family did not feel she was safe to go home, She was placed on the medical floor on observation. Review of Systems All systems reviewed & are unremarkable except as noted in HPI and below PFSH All Active Problems (Updated 11/05/22 @ 16:11 by Roslyn Griffin NP) DVT prophylaxis (Acute) Discharge planning issues (Acute) Bilateral leg weakness (Acute) Fall (Acute) Hypomagnesemia (Acute) Subtherapeutic anticoagulation (Acute) Leg edema, left (Acute) 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 (Chronic) Peripheral neuropathy (Chronic) undetermined etiology. Varicose veins (Chronic) Chronic diarrhea (Chronic) managed with metamucil with good effect. GERD (gastroesophageal reflux disease) (Chronic) Hypertension (Chronic) Chronic anticoagulation (Chronic) History of multiple DVT, goal INR 2-to 3 History of DVT (deep vein thrombosis) (Chronic) Hyperlipidemia (Chronic) Severe obesity (BMI 35.0-39.9) with comorbidity (Chronic) Leg weakness, bilateral (Acute) At risk for falls (Acute) Medical History Adenomatous colon polyp Corns/callosities Eczema Lactose intolerance Onychomycosis Venous stasis dermatitis Surgical History Cholecystectomy January 2005 Colonoscopy - [facility] [place] 2010 exploratory lung surgery 1985 squamous papilloma excision of vocal cord 1998 Vaginal hysterectomy 1984- with bladder lift Family History Mother , age 77 No problems noted. Father , age 67 No problems noted. Brother , age 74 No problems noted. Brother , age 83 No problems noted. Social History Smoking/Tobacco Use Status: Former Tobacco Use tobacco type: cigarettes Quit Date: 11/05/80 Tobacco: How many years used: 20 Smoking risk assessment performed?: Yes Alcohol Intake: never Drug use: Never Household members: other Details: Grandson Housing: house Communication Needs: Corrective Lenses Do you need help understanding health information?: Often Pets and animals: Yes Pets and animals: dog(s) Sexually active: No Do you think of yourself as: straight/heterosexual Current gender identity: female What is your relationship status?: How often do you talk on the phone with friends or family?: three or more times per week How often do you get together with friends or relatives?: three or more times per week How often do you attend scientology or gnosticist services?: 1-3 times per year Do you belong to any clubs or organized social groups?: no Panel score (0-1 are the most socially isolated patients): 1 What type of physical activity do you participate in: decline to answer Duration: decline to answer Frequency: decline to answer Echo/Oriental Orthodox: Baptist Special echo needs: No Seatbelt use: always Drive intox or ride w/intox 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 Do you feel safe at home: Yes Do you feel safe in your relationship?: Yes Meds Allergies and Home Medications Allergies Allergy/AdvReac Type Severity Reaction Status Date / Time No Known Allergies Allergy Verified 11/05/22 07:59 Home Medications Medication Instructions Recorded Confirmed Type lisinopril 20 mg tablet 20 mg PO DAILY #90 tabs 12/12/21 11/05/22 Rx esomeprazole magnesium 20 mg 20 mg PO DAILY #90 tab-caps 12/27/21 11/05/22 Rx capsule,delayed release (Nexium) potassium chloride 20 mEq 20 meq PO DAILY #90 tabs 01/24/22 11/05/22 Rx tablet,extended release triamterene 37.5 0.5 tab PO DAILY #90 tab-caps 10/26/22 11/05/22 Rx mg-hydrochlorothiazide 25 mg tablet atorvastatin 40 mg tablet 40 mg PO DAILY 11/05/22 11/05/22 History clobetasol-emollient 0.05 % 1 applic topical HS PRN 11/05/22 11/05/22 History topical cream warfarin 2.5 mg tablet 2.5 mg PO QPM 11/05/22 11/05/22 History Exam Const General: cooperative and no acute distress HENMT Mouth: moist mucous membranes Eyes Conjunctivae: normal conjunctivae Sclera: normal sclerae Neck Neck: trachea midline and supple Resp Auscultation: clear to auscultation bilaterally, no rales, no rhonchi and no wheezes Cardio Rate: regular rate and not tachycardic Rhythm: regular rhythm GI Palpation: soft, not firm, no guarding, no masses, not rigid and nontender Skin General skin exam: no rashes or lesions noted Neuro General: patient alert, patient awake and tone normal Cranial Nerves: CN's II-XI intact bilaterally Cognition: normal cognition Motor: strength abnormal (3/5 bilateral LEs) and other (5/5 UEs bilateral) Extrem General: no calf tenderness and edema Laterality: bilateral (1+ pitting) Psych Appearance: grossly normal Mental Status: mental status grossly normal Results Labs Result diagrams: 11/05/22 09:08 11/05/22 09:08 Labs: Laboratory Results - last 24 hr 11/05/22 11/05/22 11/05/22 09:08 09:08 09:08 WBC RBC Hgb Hct MCV MCH MCHC RDW Plt Count MPV Immature Gran % Neutrophils % Lymphocytes % Monocytes % Eosinophils % Basophils % Nucleated RBC % Absolute Neutrophils Absolute Lymphocytes Absolute Monocytes Absolute Eosinophils Absolute Basophils PT 15.7 H INR 1.6 H Sodium 140 Potassium 3.7 Chloride 106 Carbon Dioxide 25.8 Anion Gap 8.2 BUN 27 H Creatinine 1.1 H Est GFR (CKD-EPI 2020) 50.80 Glucose 104 Calcium 9.1 Magnesium Cancelled 1.7 L Total Bilirubin 0.4 AST 24 ALT 22 Alkaline Phosphatase 179 H Troponin I < 50 NT-Pro-B Natriuret Pep Cancelled 195 Total Protein 7.0 Albumin 3.5 Urine Color Urine Clarity Urine pH Ur Specific [place] Urine Protein Urine Ketones Urine Blood Urine Nitrite Urine Bilirubin Urine Urobilinogen Ur Leukocyte Esterase Urine RBC Urine WBC Ur Epithelial Cells Urine Crystals Urine Bacteria Urine Casts Urine Mucus Ur Culture Indicated? Urine Glucose 11/05/22 11/05/22 11/05/22 09:08 09:30 10:45 WBC 13.04 H RBC 3.96 Hgb 11.7 Hct 36.2 MCV 91 MCH 29.5 MCHC 32.3 RDW 12.5 Plt Count 213 MPV 9.3 Immature Gran % 0.4 Neutrophils % 88.4 Lymphocytes % 6.0 Monocytes % 4.8 Eosinophils % 0.2 Basophils % 0.2 Nucleated RBC % 0.0 Absolute Neutrophils 11.53 H Absolute Lymphocytes 0.78 L Absolute Monocytes 0.63 Absolute Eosinophils 0.03 Absolute Basophils 0.03 PT INR Sodium Potassium Chloride Carbon Dioxide Anion Gap BUN Creatinine Est GFR (CKD-EPI 2020) Glucose Calcium Magnesium Total Bilirubin AST ALT Alkaline Phosphatase Troponin I NT-Pro-B Natriuret Pep Total Protein Albumin Urine Color Yellow Yellow Urine Clarity Clear Sl Cloudy Urine pH 5.5 5.5 Ur Specific [place] >= 1.030 H >= 1.030 H Urine Protein Negative Negative Urine Ketones Negative Negative Urine Blood Trace-intact H Large H Urine Nitrite Negative Negative Urine Bilirubin Negative Negative Urine Urobilinogen 0.2 0.2 Ur Leukocyte Esterase Negative Negative Urine RBC 0-2 >50 H Urine WBC 3-5 5-10 Ur Epithelial Cells Moderate Many Urine Crystals Negative Negative Urine Bacteria Moderate Moderate Urine Casts Negative Negative Urine Mucus Trace Trace Ur Culture Indicated? No/Sq. Contamination No/Sq. Contamination Urine Glucose Negative Negative 11/05/22 12:18 WBC RBC Hgb Hct MCV MCH MCHC RDW Plt Count MPV Immature Gran % Neutrophils % Lymphocytes % Monocytes % Eosinophils % Basophils % Nucleated RBC % Absolute Neutrophils Absolute Lymphocytes Absolute Monocytes Absolute Eosinophils Absolute Basophils PT INR Sodium Potassium Chloride Carbon Dioxide Anion Gap BUN Creatinine Est GFR (CKD-EPI 2020) Glucose Calcium Magnesium Total Bilirubin AST ALT Alkaline Phosphatase Troponin I < 50 NT-Pro-B Natriuret Pep Total Protein Albumin Urine Color Urine Clarity Urine pH Ur Specific [place] Urine Protein Urine Ketones Urine Blood Urine Nitrite Urine Bilirubin Urine Urobilinogen Ur Leukocyte Esterase Urine RBC Urine WBC Ur Epithelial Cells Urine Crystals Urine Bacteria Urine Casts Urine Mucus Ur Culture Indicated? Urine Glucose Last Vital Signs Temp 36.5 C 11/05/22 15:43 Pulse 89 11/05/22 15:43 Resp 15 11/05/22 15:43 BP 130/60 11/05/22 15:43 Pulse Ox 96 11/05/22 15:43
[2022-11-05 17:20] LABS: Source Nasal/Nares
[2022-11-05 17:54] LABS: COVID-19 PCR Negative (Negative)
[2022-11-05] MEDS: Warfarin 5 MG TAB PO (20:15)
--- NOTE | 2022-11-06 | DI.RAD_ITS ---
Exam(s) XR KNEE LT 3V AP,LAT,MAMI EXAM: XR KNEE LT 3V AP,LAT,MAMI CLINICAL HISTORY: pain and swelling, trauma. TECHNIQUE: 2D digital imaging was performed. Three views. COMPARISON: No exams were available for comparison FINDINGS: BONES: Total knee prosthesis, unremarkable. No acute fracture is present. No bony destructive lesion is seen. JOINTS: The knee is normally aligned. No joint effusion is seen. SOFT TISSUE: Lateral soft tissue swelling at the level of the lateral femoral condyle. IMPRESSION: No evidence of fracture. Intact knee prosthesis. DATA REPOSITORY: RADIATION DOSE DELIVERED:
[2022-11-06 02:31] VITALS: BP 124/76; PULSE 82; RESP 15; TEMP 36.6; O2SAT 95
[2022-11-06 06:23] LABS: Abs Immature Grans 0.02 10^3/uL (0.0-0.06); Absolute Basophil Count 0.03 10^3/uL (0.0-0.2); Absolute Eosinophil Count 0.07 10^3/uL (0.0-0.7); Absolute Lymphocyte Count 1.43 10^3/uL (1.2-3.4); Absolute Neutrophil Count 5.14 10^3/uL (1.2-6.7); Basophils % 0.4; HCT 33.8 % (36.0-46.0); HGB 10.9 g/dL (11.2-15.7); Immature Grans % 0.3; Lymphocytes % 19.6; MCH 29.3 pg (27.0-33.0); MCHC 32.2 % (32.0-36.0); MCV 91 fL (80-95); MPV 9.1 fL (8.0-11.0); Monocytes % 8.2; Neutrophils % 70.5; Platelet Count 217 10^3/uL (130-400); RBC 3.72 10^6/uL (3.93-5.22); RDW 12.7 % (11.7-14.6); WBC 7.29 10^3/uL (4.4-10.8)
[2022-11-06 06:35] LABS: INR 1.5 (0.9-1.1); Prothrombin Time 14.8 sec (9.3-11.0)
[2022-11-06 06:45] LABS: Anion Gap 8.1 mmol/L (3-11); BUN 22 mg/dL (7-18); CO2 26.9 mmol/L (21.0-32.0); CREATININE 0.9 mg/dL (0.55-1.02); Calcium 8.7 mg/dL (8.5-10.1); Chloride 106 mmol/L (98-107); Estimated GFR 64.63 (mL/min/1.73m2); Glucose 105 mg/dL (74-106); Potassium 3.7 mmol/L (3.5-5.1); Sodium 141 mmol/L (136-145)
[2022-11-06 07:45] VITALS: BP 117/76; PULSE 84; RESP 17; TEMP 36.8; O2SAT 94
[2022-11-06] MEDS: Lisinopril 20 MG TAB PO (08:00)
[2022-11-06] MEDS: Omeprazole 20 MG CAPCR PO (08:00)
[2022-11-06] MEDS: Normal Saline Flush 10 ML SYR IVP (08:00)
[2022-11-06] MEDS: Potassium Chloride 20 MEQ TABCR PO (08:00)
[2022-11-06 11:59] VITALS: BP 107/65; PULSE 82; RESP 16; TEMP 36.9; O2SAT 97
--- NOTE | 2022-11-06 12:57 | IN_ITS ---
PT Notes Visit Reasons: Hypomagnesememia Inpatient Physical Therapy Evaluation Date: 11/06/2022 Referring Doctor: Roslyn Griffin PT Orders: PT CONSULT: Evaluate Precautions: Falls Patient Profile/Admitting Diagnosis: 82-year-old female recently admitted with lower extremity weakness and a fall PMHX: PFSH All Active Problems?(Updated 11/05/22 @ 16:11 by Roslyn Griffin, DAIRY ASSOCIATE) DVT prophylaxis (Acute) Discharge planning issues (Acute) Bilateral leg weakness (Acute) Fall (Acute) Hypomagnesemia (Acute) Subtherapeutic anticoagulation (Acute) Leg edema, left (Acute) 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 (Chronic) Peripheral neuropathy (Chronic) undetermined etiology.Varicose veins (Chronic) Chronic diarrhea (Chronic) managed with metamucil with good effect.GERD (gastroesophageal reflux disease) (Chronic) Hypertension (Chronic) Chronic anticoagulation (Chronic) History of multiple DVT, goal INR 2-to 3History of DVT (deep vein thrombosis) (Chronic) Hyperlipidemia (Chronic) Severe obesity (BMI 35.0-39.9) with comorbidity (Chronic) Leg weakness, bilateral (Acute) At risk for falls (Acute) Medical History? Adenomatous colon polyp Corns/callosities Eczema Lactose intolerance Onychomycosis Venous stasis dermatitis Surgical History? Cholecystectomy January 2005Colonoscopy - [facility] 2010exploratory lung surgery 1986squamous papilloma excision of vocal cord 1998Vaginal hysterectomy 1984- with bladder lift Social History/Home Situation: Retired lives in a private split-level home with her grandson on the bottom floor. She has a few steps entering the home with a railing, and approximately 10 steps with a railing up to the split-level where she resides. She has a supportive family, does not drive. She has dinner with her grandson each night, together they share cooking duties. She is able to perform light household duties, and independent with dressing etc. Current Functional Limitations: Has some difficulty getting in and out of hospital bed Equipment Owned/DME: Wheeled walker, walk-in shower with a flexible shower hose and chair along with grab bars Subjective: Pleasant cooperative with complains of some mild discomfort throughout her left knee with weightbearing and endrange knee movements. Objective: General Observation: Resting comfortably in a recliner, talkative, in no abnormal pain behavior noted Mental Status: Alert and oriented x3 Pain: Complains of some intermittent left knee discomfort Vital Signs: Her resting O2 sat is 96% and pulse is 94 bpm. Following ambulation her O2 sat is 95% and her pulse is 94 bpm ROM: Her upper extremity articular movements are nonpainful, but she is unable to flex or abduct her right shoulder greater than 30 degrees until she is over the 120 degree angle then she can reach overhead. Active assistive hip motion is nonirritable, right knee is 0 to approximately 110 degrees, and her left knee is -5 to approximately 75 degrees with some mild endrange discomfort throughout the anterior aspect of the knee. She has multiple areas of ecchymosis throughout the left knee particularly posteriorly. She is nontender throughout the joint lines or patellar region. She has negative pain with valgus varus stress or pain on movement. Her bilateral talocrural, subtalar, and midfoot movements are hypomobile but nonpainful. She has edematous feet bilaterally, left greater than right. Circumference measurements mid patella is 54 cm on the right/57 cm on the left Strength: Her upper extremity strength is generally rated +4/5 except for her right shoulder rotator cuff, specifically the supraspinatus component at 3/5 in the infraspinatus and +3/5. Her bilateral hip flexors are 3/5, quads and +4/5, hamstrings and +4/5 and ankle musculature 3/5 Neuro: Reflexes are symmetrical and hyporeflexive, sensations intact to light touch as well as proprioception of the great toes, fingertips to nose is accurate without ataxia and rapid repetitive arm movements are intact Bed Mobility/Transfers: Patient requires minimal assistance with assuming the supine to sitting standing positions, although struggles some with her bed mobility with change in position and rolling. She feels it is related more to the bed, and does not feel that this will be a problem at home. Gait: She ambulated approximately 150 feet with FWW with a stable gait and minim al contact guarding. She is unable to toe walk due to her deformed digits, but able to heel walk with contact guarding and use of a walker. She was able to ascend and descend 4 steps with a railing safely Balance: Static Sitting: Stable Dynamic Sitting: Stable Static standding: Stable Dynamic Standing: Poor, unable to balance on 1 foot. Negative Romberg sign Special Tests: Mobility Limitations Standardized Measure [facility] AM-PAC 6 clicks Basic Mobility Inpatient Short Form: Raw Score: 16 standardized Score: 2.95 CMS Score: 54.16% Informed Consent/Education: Patient instructed in purpose of PT consult and plan of care. Assessment: Patient is a 82year old female referred to physical therapy services with the diagnosis of bilateral lower extremity weakness with recent fall. Patient presents with clinical signs and symptoms consistent with alyssa gnosis, as demonstrated by the following impairment level findings: Some mild antalgia of left lower extremity along with some mild limitation of the left knee and generalized weakness throughout; although patient feels that her lower extremity strength is comparable to her prefall status.. She feels that she is able to return home with her supportive family, and there was some discussion about acquisition of a stair climber, and initially [employer] squad assisting her to the second-level floor. Patient is assessed as a Moderate [id number] complexity based on the following: History: See comorbidities and social history Examination: See above for functional imitations and impairments Presentation: Evolving Decision Making: Moderate complexity based on her clinical findings Goals: Goals X1 week 1. Supine-Sit independent 2. Sit-Supine independent 3. Sit-Stand independent 4. Stand-Sit independent 5. Independent ambulation with FW W with standby supervision for greater than 200 feet Plan of Care/Treatment Plan: 1-2x/day, 7 days/week x 1 week. Plan of care has been reviewed with the TRAINING AND DEVELOPMENT PROFESSIONAL providing the service under Physical Therapy direction. Initiate Physical Therapy intervention for strengthening, bed mobility, transfers, gait, stairs, balance training, use of upper extremity movements device. DISCHARGE RECOMMENDATIONS: Home with services Physical therapy TREATMENT CODE/TIME: 21075/90706/50 minutes Disclaimer: This note was created using [employer] voice recognition software. It was reviewed for major content. However, there may be multiple small discrepancies and errors due to the voice recognition aspects of the software.
--- NOTE | 2022-11-06 13:02 | DSE_ITS ---
Date of service: 11/06/22 Time of Service: 13:02 DS: Diagnosis Discharge Diagnosis (1) Bilateral leg weakness: Status: Acute (2) Fall: Status: Acute (3) Hypomagnesemia: Status: Acute (4) Subtherapeutic anticoagulation: Status: Acute (5) GERD (gastroesophageal reflux disease): Status: Chronic (6) Hypertension: Status: Chronic (7) Chronic anticoagulation: Status: Chronic (8) History of DVT (deep vein thrombosis): Status: Chronic Discharge Plan Disposition Patient Disposition: Home W/Home Health Services Condition: Stable Discharge Details Reason For Visit: Hypomagnesememia Admit Date/Time: 11/05/22 14:45 Admit Provider: Adama Henderson Attending Provider: Adama Henderson Primary Care Provider: Faustino Berry Hospital Course Hospital Course: This is an 82-year-old female patient who lives home with strong family support who presented to the emergency department after experiencing falls at home with increased bilateral lower extremity weakness. They were unable to safely reambulate her in the emergency department after an emergency medical evaluation did not show any explanation for her symptoms. She was referred to observation overnight for physical therapy evaluation and discharge planning. Overnight she remained hemodynamically stable with no new complaints. She in fact was safely reambulated without difficulty. She did undergo her PT evaluation and recommendations were made for home physical therapy. Plan is to discharge to home with increased family support PT and OT. She will follow-up outpatient with primary care provider and outpatient care team discharge is discussed with Dr. Henderson Paterson Meds and New Rx's Prescriptions: Continued triamterene-hydrochlorothiazid 37.5-25 mg tablet 0.5 tab PO DAILY Qty: 90 4RF esomeprazole magnesium [Nexium] 20 mg capsule,delayed release(DR/EC) 20 mg PO DAILY Qty: 90 3RF potassium chloride 20 mEq tablet extended release 20 meq PO DAILY Qty: 90 4RF lisinopril 20 mg tablet 20 mg PO DAILY Qty: 90 4RF atorvastatin 40 mg tablet 40 mg PO DAILY warfarin 2.5 mg tablet 2.5 mg PO QPM Protocol: Dose Management Condition: Sunday Dose/Route: 2.5 mg Instruction: 1 x 2.5 mg tablet Condition: Sunday Dose/Route: 2.5 mg Instruction: 1 x 2.5 mg tablet Condition: Sunday Dose/Route: 2.5 mg Instruction: 1 x 2.5 mg tablet Condition: Sunday Dose/Route: 2.5 mg Instruction: 1 x 2.5 mg tablet Condition: Dose/Route: 5 mg Instruction: 2 x 2.5 mg tablets Condition: Sunday Dose/Route: 2.5 mg Instruction: 1 x 2.5 mg tablet Condition: Sunday Dose/Route: 2.5 mg Instruction: 1 x 2.5 mg tablet Protocol Text: Adjustment Start Date: 11/02/22 INR Value: 1.5 INR Date: 11/02/22 Recheck Date: 11/16/22 clobetasol-emollient 0.05 % cream 1 applic Topical HS PRN Discharge Instructions Instructions: Weakness (DC), Fall Prevention (DC) Stand Alone Forms: Nursing Discharge Form Referrals: Faustino Berry, AM[facility] PRINT OPERATOR [Primary Care Provider] - (Please call an make an Appoin nt Sunday to be seen in the next 7-14 days) Activity:: Activity as Tolerated Equipment/Supplies:: Walker Diet:: As Tolerated Discharge Orders Discharge Orders: Discharge Order (Routine); Ordered 11/06/22 Ordered By: Nancy Padilla Discharge Data Discharge Date/Time-TO BE ENTERED AT DEPARTURE: 11/06/22 17:12 DS: Summary Time Spent with Patient providing and/or coordinating discharge services: Less than 30 minutes Status at Discharge Functional status at discharge: uses cane/walker Overall status at discharge: patient is progressing back to baseline Mental Status: mental status grossly normal Speech and Movement: speech and movement normal Mood: congruent mood Affect: normal affect Exam Const General: cooperative and no acute distress Nutritional Appearance: obese Orientation: alert, awake and oriented x3 HENMT Head: normal to inspection, normocephalic and atraumatic Mouth: oral mucosae normal Extrem Left lower extremity: edema and knee (old surgical wound well-healed) Details: tenderness, swelling and ecchymosis Psych Mental Status: mental status grossly normal Speech and Movement: speech and movement normal Mood: congruent mood Affect: normal affect DS: Data Vitals/I&O Vitals and I&O: Vital Signs Temperature 36.9 C 11/06/22 11:59 Temperature Source Tympanic 11/06/22 11:59 Pulse 82 11/06/22 11:59 Pulse Rhythm Regular 11/06/22 08:00 Pulse 81 11/05/22 13:01 Respiratory Rate 16 11/06/22 11:59 Respiratory Effort Non-Labored 11/06/22 08:00 Respiratory Depth Normal 11/06/22 08:00 Respiratory Pattern Normal 11/06/22 08:00 Blood Pressure 107/65 11/06/22 11:59 Blood Pressure Mean 97 11/05/22 13:01 Pulse Oximetry 97 11/06/22 11:59 Oxygen Delivery Method Room Air 11/06/22 11:59 Oxygen Flow Rate 0 11/06/22 11:59 Pain Level 0 11/05/22 16:18 Intake & Output 11/05/22 11/06/22 11/06/22 23:59 11:59 23:59 Intake Total 110 / 110 120 / 120 Output Total 300 / 335 100 / 100 Balance -190 / -225 20 / 20 Weight 104.355 kg Intake: IV 110 / 110 Oral 120 / 120 Output: Urine 300 / 335 100 / 100 Other: Urine Color Straw Yellow Urine Appearance Clear Clear Urine Odor None Normal Voiding Methods Toilet Toilet Data Completed and Pending Labs on day of discharge: Labs from last 24 hours 11/06/22 11/06/22 11/06/22 06:06 06:06 06:06 WBC 7.29 RBC 3.72 L Hgb 10.9 L Hct 33.8 L MCV 91 MCH 29.3 MCHC 32.2 RDW 12.7 Plt Count 217 MPV 9.1 Immature Gran % 0.3 Neutrophils % 70.5 Lymphocytes % 19.6 Monocytes % 8.2 Eosinophils % 1.0 Basophils % 0.4 Nucleated RBC % 0.0 Absolute Neutrophils 5.14 Absolute Lymphocytes 1.43 Absolute Monocytes 0.60 Absolute Eosinophils 0.07 Absolute Basophils 0.03 PT 14.8 H INR 1.5 H Sodium 141 Potassium 3.7 Chloride 106 Carbon Dioxide 26.9 Anion Gap 8.1 BUN 22 H Creatinine 0.9 Est GFR (CKD-EPI 2020) 64.63 Glucose 105 Calcium 8.7 Magnesium 2.0 COVID-19 Source SARS-CoV-2 (PCR) 11/05/22 16:54 WBC RBC Hgb Hct MCV MCH MCHC RDW Plt Count MPV Immature Gran % Neutrophils % Lymphocytes % Monocytes % Eosinophils % Basophils % Nucleated RBC % Absolute Neutrophils Absolute Lymphocytes Absolute Monocytes Absolute Eosinophils Absolute Basophils PT INR Sodium Potassium Chloride Carbon Dioxide Anion Gap BUN Creatinine Est GFR (CKD-EPI 2020) Glucose Calcium Magnesium COVID-19 Source Nasal/Nares SARS-CoV-2 (PCR) Negative PFSH All Active Problems (Updated 11/05/22 @ 16:11 by Roslyn Griffin NP) DVT prophylaxis (Acute) Discharge planning issues (Acute) Bilateral leg weakness (Acute) Fall (Acute) Hypomagnesemia (Acute) Subtherapeutic anticoagulation (Acute) Leg edema, left (Acute) 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 (Chronic) Peripheral neuropathy (Chronic) undetermined etiology. Varicose veins (Chronic) Chronic diarrhea (Chronic) managed with metamucil with good effect. GERD (gastroesophageal reflux disease) (Chronic) Hypertension (Chronic) Chronic anticoagulation (Chronic) History of multiple DVT, goal INR 2-to 3 History of DVT (deep vein thrombosis) (Chronic) Hyperlipidemia (Chronic) Severe obesity (BMI 35.0-39.9) with comorbidity (Chronic) Leg weakness, bilateral (Acute) At risk for falls (Acute) Medical History Adenomatous colon polyp Corns/callosities Eczema Lactose intolerance Onychomycosis Venous stasis dermatitis Surgical History Cholecystectomy January 2005 Colonoscopy - 2010 exploratory lung surgery 1985 squamous papilloma excision of vocal cord 1998 Vaginal hysterectomy 1984- with bladder lift Family History Mother , age 77 No problems noted. Father , age 67 No problems noted. Brother , age 74 No problems noted. Brother , age 83 No problems noted. Social History Smoking/Tobacco Use Status: Former Tobacco Use tobacco type: cigarettes Quit Date: 11/05/80 Tobacco: How many years used: 20 Smoking risk assessment performed?: Yes Alcohol Intake: never Drug use: Never Household members: other Details: Grandson Housing: house Communication Needs: Corrective Lenses Do you need help understanding health information?: Often Pets and animals: Yes Pets and animals: dog(s) Sexually active: No Do you think of yourself as: straight/heterosexual Current gender identity: female What is your relationship status?: How often do you talk on the phone with friends or family?: three or more times per week How often do you get together with friends or relatives?: three or more times per week How often do you attend cheondoism or mormon services?: 1-3 times per year Do you belong to any clubs or organized social groups?: no Panel score (0-1 are the most socially isolated patients): 1 What type of physical activity do you participate in: decline to answer Duration: decline to answer Frequency: decline to answer Echo/Christianity: Judaism Special echo needs: No Seatbelt use: always Drive intox or ride w/intox patient transportation driver: No Do you feel safe at home: Yes Do you feel safe in your relationship?: Yes
--- NOTE | 2022-11-06 13:31 | DI.VRAD_ITS ---
PROCEDURE INFORMATION: Exam: XR Left Knee Exam date and time: 11/06/2022 12:58 PM Age: 82 years old Clinical indication: Pain and injury or trauma; Fall; Swelling or effusion of joint; Knee; Blunt trauma; Left; Prior surgery; Patient HX: Pain and swelling, trauma TECHNIQUE: Imaging protocol: Radiologic exam of the Left knee. Views: 3 views. COMPARISON: No relevant prior studies available. FINDINGS: Bones/joints: Total knee arthroplasty with patella button. Soft tissues: Soft tissue swelling lateral aspect of the knee. IMPRESSION: 1. No evidence for acute bony injury. If clinical symptoms persist recommend followup film in 7-10 days. 2. Soft tissue swelling lateral aspect of the knee. Dictated and Authenticated by: Anastasia Sandhu MD. Ordering:SEYMOUR Cruz MD
[2022-11-06 15:52] VITALS: BP 113/60; PULSE 76; RESP 16; TEMP 37.2; O2SAT 96
--- NOTE | 2022-11-06 17:12 | PDOC.HHF2F ---
Home Health Referral Home Health Orders Clinical synopsis of why skilled professionals are needed: generalized weakness, ambulatory dysfunction, knee contusion Medical diagnosis necessitation home health referral: home safety evaluation and home exercise program for strengthening to optimize mobility to stay home. Physical Therapist: Check all that apply Increase strength & endurance for safe mobility at home: Ordered To design/establish home maintenance program: Ordered Fall reduction therapy program for patient with history of frequent falls: Ordered Home safety evaluation and teaching/gait training including stair management (if applicable): Ordered Occupational Therapist: Evaluate and treat for patient unable to perform ADL/IADL/self-care: Ordered Upper extremity strengthening, range and motion: Ordered Home Bound Status Requires the aid of supportive device (check all that apply): Walker Describe why leaving home would require a considerable and taxing effort: Safety Concerns: describe (frequent falls, knee pain) Encounter Date and Reason: I certify that a FTF encounter for this patient was performed on November 06, 2022 and that such encounter was related to the primary reason the patient requires home health services. The encounter was conducted in the following manner: By me as the certifying physician, GRINDER SET UP OPERATOR THREAD, PA or By an inpatient physician, GRINDER SET UP OPERATOR THREAD or PA during an inpatient stay who communicated findings to me, Certification And Authentication I certify that I composed the above information based on my clinical judgment relating to this patient's medical condition and, if applicable, clinical findings communicated to me by the NPP or inpatient physician who performed the FTF encounter. Name of Provider that will be monitoring home health services: Faustino Berry
== END 2022-11-06 17:12 | disposition home health service (06) ==
LOC: ER 15:20 → MS 15:59
PROVIDERS: Nurse Practitioner Family; Admitting Provider Internal Medicine; Emergency Provider Student in an Organized Health Care Education/Training Program; PCP Nurse Practitioner Family; Visit Provider Internal Medicine
DX: R53.1 Weakness (principal); R60.0 Localized edema; I10 Essential (primary) hypertension; Z86.718 Personal history of other venous thrombosis and embolism; Z79.01 Long term (current) use of anticoagulants; E66.9 Obesity, unspecified; Z68.39 Body mass index [BMI] 39.0-39.9, adult; E83.42 Hypomagnesemia; R32 Unspecified urinary incontinence; Z20.822 Contact with and (suspected) exposure to COVID-19; G62.9 Polyneuropathy, unspecified; K52.9 Noninfective gastroenteritis and colitis, unspecified; K21.9 Gastro-esophageal reflux disease without esophagitis; Z91.81 History of falling; I83.12 Varicose veins of left lower extremity with inflammation; I83.11 Varicose veins of right lower extremity with inflammation; R79.1 Abnormal coagulation profile; W18.39XA Other fall on same level, initial encounter
CPT/HCPCS: 36415; 51701; 73562; 80048; 80053; 87635; 93005; 96365; 97116; 97162; 99285; 71046; 81003; 81015; 83735; 83880; 84484; 85025; 85610; 93010; 99222; 99238; G0378; J3475

== ENCOUNTER 2023-06-01 21:13 | Outpatient (REF) | payer OTHER, SELFPAY | END 2023-06-01 21:14 | disposition home or self-care (01) | LOC: LBN 21:13 | PROVIDERS: PCP Nurse Practitioner Family; Visit Provider Nurse Practitioner Family | DX: R82.998 Other abnormal findings in urine (principal); R42 Dizziness and giddiness | CPT/HCPCS: 87086 ==

== ENCOUNTER → 2023-08-08 02:02 | Outpatient (CLI) | payer OTHER, SELFPAY ==
--- NOTE | 2023-08-08 08:00 | DI.RAD_ITS ---
Exam(s) XR FOOT RT COMPLETE EXAM: XR FOOT RT COMPLETE CLINICAL HISTORY: PAINFUL HAMMER TOE RT FOOT, PAIN RT FOOT,M20.41,M79.671. TECHNIQUE: 2D digital imaging was performed. COMPARISON: No exams were available for comparison FINDINGS: 3 views No evidence of fracture or diastasis of Lisfranc joint. There is hallux valgus, similar to the oppos ite side. Mild degenerative changes in the great toe metatarsophalangeal joint. No osseous lesions nor erosions. On the lateral view there is pes planus noted. Inferior calcaneal spur also evident on this side. IMPRESSION: Similar findings to the opposite side with hallux valgus and pes planus evident. Also prominent infe rior calcaneal spur on this side DATA REPOSITORY: RADIATION DOSE DELIVERED:
--- NOTE | 2023-08-08 08:00 | DI.RAD_ITS ---
Exam(s) XR FOOT LT COMPLETE EXAM: XR FOOT LT COMPLETE CLINICAL HISTORY: Painful hammer toe lt foot,LT FOOT PAIN, M20.42,M79.672. TECHNIQUE: 2D digital imaging was performed. COMPARISON: CR XR FOOT RT COMPLETE from 08/08/2023 FINDINGS: 3 views No evidence of acute fracture nor diastasis of the Lisfranc joint. There is hallux valgus. Mild deg enerative changes in the great toe metatarsophalangeal joint. No osseous lesions nor erosions. Ther e is pes planus noted on the weight-bearing lateral view. There is a large inferior calcaneal spur n oted. Minimal degenerative changes. No erosions. No radiopaque foreign bodies. IMPRESSION: Hallux valgus. Pes planus. DATA REPOSITORY: RADIATION DOSE DELIVERED:
== END ==
PROVIDERS: PCP Nurse Practitioner Family; Visit Provider Podiatrist
DX: M20.42 Other hammer toe(s) (acquired), left foot (principal); M79.672 Pain in left foot; M20.41 Other hammer toe(s) (acquired), right foot; M79.671 Pain in right foot
CPT/HCPCS: 73630

== ENCOUNTER 2023-11-28 09:04 | Emergency (ER) | payer OTHER, SELFPAY ==
[2023-11-28] VITALS (191 sets, daily range): BP systolic 34–201; BP diastolic 17–97; PULSE 68–91; RESP 14–30; TEMP 36.4–37.2; O2SAT 90–100
--- NOTE | 2023-11-28 09:00 | RT.EKG_ITS ---
APPROVED REPORT Exam: Resting ECG Reason for Exam: dizziness Patient Location: E HR:81 bpm ECG Measurements Heart Rate 81 AXIS TX 174 P 63 QRSd 88 QRS 31 QT 360 T 48 QTc 418 Conclusion Sinus rhythm...normal P axis, V-rate 60- 99 Low voltage, precordial leads...precordial leads <1.0mV sinus rhythm normal axis, normal intervals, non ischemic
--- NOTE | 2023-11-28 09:16 | W.ED.GENAD ---
HPI General Date/Time Provider Initiated Documentation: 11/28/23 09:15. HPI Narrative: 83 year-old female presents to ED today by EMS with a chief complaint of vomiting all last night, nausea currently, feeling light-headed and dizzy, having L sided abdominal/flank pain with onset of the ABD pain a couple days ago- had some diarrhea. Quality described as denies burning with urination, states she has to push hard to make a weak stream- which isn't too abnormal for her, no radiation to overt fever, chest pain, shortness of breath, bowel changes. Severity is described as 8/10. Palliating factors include nothing specific attempted. Provoking factors include nothing specific. Events leading up to the incident/Associated Symptoms: Patient endorses history of UTI, and that a recent routine INR level was high. Patient is anticoagulated on warfarin. Related Data Home Medications Medication Instructions Recorded Confirmed triamterene 37.5 0.5 tab (1/2 x 37.5-25 mg) PO 10/26/22 11/28/23 mg-hydrochlorothiazide 25 mg tablet DAILY #90 tab-caps warfarin 5 mg tablet 5 mg PO QPM #90 tabs 01/03/23 11/28/23 esomeprazole magnesium 20 mg 20 mg PO DAILY #90 tab-caps 03/21/23 11/28/23 capsule,delayed release (Nexium) atorvastatin 40 mg tablet 40 mg PO DAILY #90 tabs 05/02/23 11/28/23 clobetasol-emollient 0.05 % 1 applic topical HS PRN dermatitis 05/02/23 11/28/23 topical cream #15 grams lisinopril 20 mg tablet 10 mg (1/2 x 20 mg) PO DAILY #90 05/02/23 11/28/23 tabs potassium chloride 20 mEq 20 meq PO DAILY #90 tabs 05/02/23 11/28/23 tablet,extended release triamcinolone acetonide 0.1 % 1 applic topical BID #30 grams 10/24/23 11/28/23 topical cream Previous Rx's Medication Instructions Recorded triamterene 37.5 0.5 tab (1/2 x 37.5-25 mg) PO 10/26/22 mg-hydrochlorothiazide 25 mg tablet DAILY #90 tab-caps warfarin 5 mg tablet 5 mg PO QPM #90 tabs 01/03/23 esomeprazole magnesium 20 mg 20 mg PO DAILY #90 tab-caps 03/21/23 capsule,delayed release (Nexium) atorvastatin 40 mg tablet 40 mg PO DAILY #90 tabs 05/02/23 clobetasol-emollient 0.05 % 1 applic topical HS PRN dermatitis 05/02/23 topical cream #15 grams lisinopril 20 mg tablet 10 mg (1/2 x 20 mg) PO DAILY #90 05/02/23 tabs potassium chloride 20 mEq 20 meq PO DAILY #90 tabs 05/02/23 tablet,extended release triamcinolone acetonide 0.1 % 1 applic topical BID #30 grams 10/24/23 topical cream Allergies Allergy/AdvReac Type Severity Reaction Status Date / Time No Known Allergies Allergy Verified 10/24/23 09:43 General Stated Complaint: Nausea/Vomit/Diar ELLE: 3 Review of Systems All systems reviewed & are unremarkable except as noted in HPI and below Exam Narrative Exam Narrative: GENERAL APPEARANCE: Well-nourished, obese, toxic, awake and alert, atraumatic, no acute distress. SKIN: Warm, pink, dry, intact, without rashes/lesions/ulcerations. HEAD: Normocephalic, atraumatic, normal hair distribution for gender/age. EYES: Pupils PERRLA, EOMs intact without nystagmus, normal conjunctiva, no exudates on lids/lashes. ENT: Nares patent, no circumoral cyanosis, no facial swelling NECK: Supple, trachea midline, painless cervical ROM. LUNGS/CHEST: Lungs CTA bilaterally- no rhonchi/rales/wheezes diffusely, non-labored respirations, normal A/P diameter, symmetrical expansion, no chest wall deformity HEART (CV/PV): Regular rate and rhythm without murmur, no peripheral edema, no JVD. ABDOMEN: Soft, non-distended, no guarding, L CVA tenderness, LUQ ABD tenderness, no Rovsing's. MSK: Normal ROM, no swelling/deformity to bilateral UEs or LEs, moving all extremities without weakness, no cyanosis, spine midline without tenderness, normal curvature. NEURO: Mental Status AAOx4 - alert to person, place, time, events No facial droop, no forehead involvement. Motor: No focal weakness - strength 5/5 in bilateral UEs and LEs, proximal and distal, symmetric. Sensory: sensation intact to light touch globally. Gait NT. 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 83 y/o F presents to ED today with a chief complaint of vomiting all last night, some diarrhea starting 2 days ago, chronic dysuria and difficulty urinating, also stating that her recent INR level was high on warfarin. Patient has L-sided abdominal pain, without Rovsing's, her urine is dark, denies overt fever. Patients' medical history: Venous stasis dermatitis, history of cholecystectomy, memory loss, fall risk on anticoagulants, morbid obesity, history of DVT, hypertension, GERD, peripheral neuropathy. Family and social history: [ ]. Pertinent exam findings / vital signs include severe HTN on arrival, asymptomatic resolved with time - L sided abdominal pain and CVA TTpercussion. Differential / pathologies of concern include pyelonephritis, UTI, renal stone, pancreatitis, sepsis. Diagnostic studies of: -CBC, CMP, Lactate, Lipase, UA, CRP/ESR, Blood Cx's, Procalcitonin, PPT/PT (INR), TSH, Trop I (+delta value), EKG, CXR, CT ABD/Pelvis w Contrast. -CBC shows leukocytosis of 14, stable hemoglobin, platelets within normal limits, elevated absolute neutrophils -INR shows significant increase from prior value on November 19 to 8.8 up from 4.3 -PTT 88.6 -Initial lactate 3.3, 2-hour repeat 2.4-consistent with sepsis -Elevated creatinine to 1.5 -Elevated BNP to 1093, suspect renal etiology -UA sent for culture, greater than 50 red blood cells -TSH wnl -mild elev CRP -Blood Cx's pending -Chest x-ray shows no pulmonary edema or pneumonia -CT abdomen pelvis with contrast shows a 6 mm ureteral stone on the left with hydronephrosis Interventions of: -30cc/kg bolus of IVF based on IBW, with improved lactate to 2.4 but consistent with sepsis -4mg IV Zofran x2 -2gm Ceftriaxone IV for urologic source of sepsis. -80mg Tobramycin IV Based on patients stable blood pressures, I do not suspect acute hemorrhage- holding warfarin for now, awaiting transfer consult for possible reversal, consider low-dose oral Vitamin K. -Consulted with [facility] here, they would not be able to accommodate this patient with this INR, and no capacity at this time. ED Course/Assessment/Plan: 83-year-old female presents with a couple day onset of GI symptoms and left-sided abdominal pain, vomiting all last night, having left flank pain, concern was for pyelonephritis versus infected kidney stone. Patient is septic and does have a 6 mm renal stone in the left ureter that will likely need urgent stenting, patient was covered with IV ceftriaxone, seeking transfer for admission. Patient is highly supratherapeutic on their INR which we are holding warfarin at this time, consider reversal with transfer consult. Findings consistent with sepsis and infected kidney stone as source. Spoke with [facility] on-call @ [phone] - he accepts the patient in transfer, requests we start Amikacin and have pharmacy dose it- we have tobramycin in stock. [facility] has accepted the patient, pending hospitalist approval at 1600- which is the families' preference. Patient signed out to oncoming provider Nancy Jessica NP at shift change pending call back from [facility]. Disposition of Sepsis, Ureteral Stone with Hydronephrosis. Patient verbalized understanding of the plan and return to ED criteria and engaged in shared decision making. Medical Records Medical records reviewed: Yes I reviewed the patient's medical records. Imaging Data Radiologic Study: Attestation: I personally reviewed and interpreted this imaging study as follows: Imaging: X-Ray Radiologist's impression: EXAM: XR CHEST 2V PA LATERAL CLINICAL HISTORY: sepsis, getting fluids, elev BNP, checking edema TECHNIQUE: 2D digital imaging was performed. COMPARISON: CR,XR XR CHEST 2V PA LATERAL from 11/05/2022 FINDINGS: Exam limited by under penetration. Abdominal soft tissues partially obscure the right lung base. HEART: Normal size. Aorta: Not dilated. Calcified. PULMONARY VASCULATURE: Normal. LUNGS: Optimally inflated. No infiltrate or pulmonary edema visible. PLEURAL SPACE: No pleural effusion or pneumothorax. BONE:Unremarkable for age. Soft tissues: Unremarkable. IMPRESSION: Limited exam. No gross evidence of an acute abnormality. Radiologic Study #2: Radiologist's impression: EXAM: CT ABDOMEN PELVIS W CLINICAL HISTORY: L flank pain, epigastric tenderness, vomiting. TECHNIQUE: Imaging Protocol: Axial computed tomography images with coronal and sagittal reformatted images were created and reviewed CONTRAST MATERIAL: Intravenous: Omnipaque 350 Contrast volume:100 ml Oral: no COMPARISON: No exams were available for comparison FINDINGS: ABDOMEN and PELVIS: Lung Bases: No acute findings. Dependent changes and respiratory motion. The heart is enlarged. Small to moderate-sized hiatal hernia. Liver: Normal density. No measurable mass. Gallbladder and biliary tract: Status post cholecystectomy. No radiodense calculus or dilation. Pancreas: Mildly atrophic. No abnormal calcifications or inflammatory process. No evidence of mass. Spleen: Normal. Kidneys: Normal size, contour and axis. No radiodense stones. [id number] left hydronephrosis secondary to a 6 millimeter calculus in the mid ureter. Additional 7 millimeter calculus noted at the lower pole of the left kidney. Perinephric stranding. No right-sided calculi or hydronephrosis is present. No suspicious masses seen. Adrenal glands: No masses seen. Vasculature: Abdominal aorta non-dilated. Atherosclerotic changes. Soft tissues: Unremarkable. Bladder: No gross wall thickening. No calculi.No focal mass. Bowel: Small diverticulum 2nd portion of the duodenum. No obstruction. No bowel wall thickening. Appendix normal. Normal quantity of stool. Peritoneal cavity: No ascites. No focal collection or mesenteric inflammatory response. Bones: Degenerative changes in the spine. Reproductive organs: Status post hysterectomy. Lymph nodes: Unremarkable. IMPRESSION:: Moderate left hydronephrosis secondary to a 6 millimeter calculus at the mid left ureter. Perinephric stranding. Additional 7 millimeter nonobstructing stone lower pole left kidney. Lab Data Lab results reviewed: Yes I reviewed the patient's lab results. Labs: 11/28/23 12:38 Urine - Reflex from Ua Urine Culture - Pending 11/28/23 11:10 Blood Blood Culture - Pending 11/28/23 10:50 Blood Blood Culture - Pending Laboratory Tests Range/Units 11/28/23 11/28/23 11/28/23 10:08 11:30 12:38 WBC (4.4-10.8) 10^3/uL 14.43 H RBC (3.93-5.22) 10^6/uL 4.85 Hgb (11.2-15.7) g/dL 14.2 Hct (36.0-46.0) % 42.8 MCV (80-95) fL 88 MCH (27.0-33.0) pg 29.3 MCHC (32.0-36.0) % 33.2 RDW (11.7-14.6) % 13.1 Plt Count (130-400) 10^3/uL 241 MPV (8.0-11.0) fL 9.3 Immature Gran % 0.3 Neutrophils % 91.1 Lymphocytes % 3.7 Monocytes % 4.7 Eosinophils % 0.0 Basophils % 0.2 Nucleated RBC % (0.0-0.3) % 0.0 Absolute Neutrophils (1.2-6.7) 10^3/uL 13.15 H Absolute Lymphocytes (1.2-3.4) 10^3/uL 0.53 L Absolute Monocytes (0.1-0.8) 10^3/uL 0.68 Absolute Eosinophils (0.0-0.7) 10^3/uL 0.00 Absolute Basophils (0.0-0.2) 10^3/uL 0.03 ESR (0-30) mm/hr 11 PT Cancelled > 83.4 H INR Cancelled > 8.8 H* APTT Cancelled 88.6 H* VBG Lactate (0.6-1.4) mmol/L 3.3 H* 2.4 H* Sodium (136-145) mmol/L 140 Potassium (3.5-5.1) mmol/L 4.6 Chloride (98-107) mmol/L 102 Carbon Dioxide (21.0-32.0) mmol/L 28.0 Anion Gap (3-11) mmol/L 10.0 BUN (7-18) mg/dL 35 H Creatinine (0.55-1.02) mg/dL 1.5 H Est GFR (CKD-EPI 2020) (mL/min/1.73m2) 34.79 Glucose (74-106) mg/dL 150 H Calcium (8.5-10.1) mg/dL 9.5 Magnesium (1.8-2.4) mg/dL 1.8 Total Bilirubin (0.2-1.0) mg/dL 0.5 Conjugated Bilirubin (0.0-0.2) mg/dL 0.1 AST (15-37) U/L 26 ALT (14-59) U/L 29 Alkaline Phosphatase (46-116) U/L 206 H Troponin I (< or =60) ng/L < 50 < 50 C-Reactive Protein (0.0-0.3) mg/dL 0.87 H NT-Pro-B Natriuret Pep (<300) pg/mL 1093 H Total Protein (6.4-8.2) g/dL 7.8 Albumin (3.4-5.0) g/dL 3.7 Lipase (16-77) U/L 25 Procalcitonin ng/mL < 0.1 TSH (0.36-3.74) uIU/mL 1.61 Urine Color (Yellow) Brown Urine Clarity (Clear) Cloudy Urine pH (5-8) Ur Specific [place] (1.005-1.025) 1.032 H Urine Protein (Negative) mg/dL Color Interference Urine Ketones (Negative) mg/dL Color Interference Urine Blood (Negative) Color Interference Urine Nitrite (Negative) Color Interference Urine Bilirubin (Negative) Color Interference Urine Urobilinogen (Up to 0.2) mg/dL Color Interference Ur Leukocyte Esterase (Negative) Color Interference Urine RBC (0-2) HPF >50 H Urine WBC (0-5) HPF Ur Epithelial Cells Not Applicable Urine Crystals Not Applicable Urine Bacteria Not Applicable Urine Mucus Not Applicable Ur Culture Indicated? Yes Urine Glucose (Negative) mg/dL Color Interference Quality:SDOH Health Related Social Needs: No Data to Display PFSH All Active Problems (Updated 11/28/23 @ 14:07 by MARIO Jeff) Sepsis (Acute) Ureteral stone with hydronephrosis (Acute) Memory loss (Acute) Ulcer of right foot limited to breakdown of skin (Acute) Hammer toes of both feet (Acute) Dizziness (Acute) Subtherapeutic anticoagulation (Acute) Hypomagnesemia (Acute) Fall (Acute) Bilateral leg weakness (Acute) Leg edema, left (Acute) At risk for falls (Acute) Leg weakness, bilateral (Acute) Severe obesity (BMI 35.0-39.9) with comorbidity (Chronic) Hyperlipidemia (Chronic) History of DVT (deep vein thrombosis) (Chronic) Chronic anticoagulation (Chronic) History of multiple DVT, goal INR 2-to 3 Hypertension (Chronic) GERD (gastroesophageal reflux disease) (Chronic) Chronic diarrhea (Chronic) managed with metamucil with good effect. Varicose veins (Chronic) Peripheral neuropathy (Chronic) undetermined etiology. 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 (Chronic) Medical History Corns/callosities Onychomycosis Eczema Venous stasis dermatitis Adenomatous colon polyp Lactose intolerance Surgical History squamous papilloma excision of vocal cord 1998 exploratory lung surgery 1985 Vaginal hysterectomy 1984- with bladder lift Colonoscopy - MAC 2011 Cholecystectomy January 2005 Family History Mother , age 77 No problems noted. Father , age 67 No problems noted. Brother , age 74 No problems noted. Brother , age 83 No problems noted. Social History Smoking/Tobacco Use Status: Former Tobacco Use tobacco type: cigarettes Quit Date: 11/05/80 Tobacco: How many years used: 20 Smoking risk assessment performed?: Yes Alcohol Intake: never Drug use: Never Substance use type: does not use Household members: other Details: Grandson Housing: house Communication Needs: Corrective Lenses Do you need help understanding health information?: Often Pets and animals: Yes Pets and animals: dog(s) Sexually active: No Do you think of yourself as: straight/heterosexual Current gender identity: female What is your relationship status?: How often do you talk on the phone with friends or family?: three or more times per week How often do you get together with friends or relatives?: three or more times per week How often do you attend scientologist or taoism services?: 1-3 times per year Do you belong to any clubs or organized social groups?: no Panel score (0-1 are the most socially isolated patients): 1 What type of physical activity do you participate in: decline to answer Duration: decline to answer Frequency: decline to answer Echo/Presybeterian: Anabaptism Special echo needs: No Seatbelt use: always Drive 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 Do you feel safe at home: Yes Do you feel safe in your relationship?: Yes Discharge Plan Disposition Patient Disposition: Transfer-Acute Inpatient Care Discharge Details Clinical Impression: Ureteral stone with hydronephrosis, Sepsis Primary Care Provider: Faustino Berry ED Provider: Davis Villatoro Home Meds and New Rx's Prescriptions: No Action triamterene-hydrochlorothiazid 37.5-25 mg tablet 0.5 tab PO DAILY Qty: 90 4RF atorvastatin 40 mg tablet 40 mg PO DAILY Qty: 90 4RF potassium chloride 20 mEq tablet extended release 20 meq PO DAILY Qty: 90 4RF clobetasol-emollient 0.05 % cream 1 applic Topical HS PRN (Reason: dermatitis) Qty: 15 0RF lisinopril 20 mg tablet 10 mg PO DAILY Qty: 90 4RF esomeprazole magnesium [Nexium] 20 mg capsule,delayed release(DR/EC) 20 mg PO DAILY Qty: 90 3RF triamcinolone acetonide 0.1 % cream 1 applic topical BID Qty: 30 3RF warfarin 5 mg tablet 5 mg PO QPM Qty: 90 3RF Protocol: Dose Management Condition: Sunday Dose/Route: 2.5 mg Instruction: 0.5 x 5 mg tablets Condition: Sunday Dose/Route: 0 mg Instruction: 0 tablets Condition: Sunday Dose/Route: 2.5 mg Instruction: 0.5 x 5 mg tablets Condition: Sunday Dose/Route: 2.5 mg Instruction: 0.5 x 5 mg tablets Condition: Dose/Route: 2.5 mg Instruction: 0.5 x 5 mg tablets Condition: Sunday Dose/Route: 2.5 mg Instruction: 0.5 x 5 mg tablets Condition: Sunday Dose/Route: 2.5 mg Instruction: 0.5 x 5 mg tablets Protocol Text: Adjustment Start Date: Sunday11/19/23 INR Value: 4.3 INR Date: 11/19/23 Recheck Date: 11/26/23
[2023-11-28] MEDS: Ondansetron 4 MG/2 ML VIAL IVP (10:24)
[2023-11-28 10:28] LABS: ESR 11 mm/hr (0-30)
[2023-11-28 10:29] LABS: Lactate 3.3 mmol/L (0.6-1.4)
[2023-11-28 10:30] LABS: Abs Immature Grans 0.05 10^3/uL (0.0-0.06); Absolute Basophil Count 0.03 10^3/uL (0.0-0.2); Absolute Lymphocyte Count 0.53 10^3/uL (1.2-3.4); Absolute Monocyte Count 0.68 10^3/uL (0.1-0.8); Basophils % 0.2; HCT 42.8 % (36.0-46.0); HGB 14.2 g/dL (11.2-15.7); Immature Grans % 0.3; Lymphocytes % 3.7; MCH 29.3 pg (27.0-33.0); MCHC 33.2 % (32.0-36.0); MCV 88 fL (80-95); MPV 9.3 fL (8.0-11.0); Monocytes % 4.7; Neutrophils % 91.1; Platelet Count 241 10^3/uL (130-400); RBC 4.85 10^6/uL (3.93-5.22); RDW 13.1 % (11.7-14.6); RDW-SD 42.8 fL; WBC 14.43 10^3/uL (4.4-10.8)
[2023-11-28 10:31] LABS: Absolute Neutrophil Count 13.15 10^3/uL (1.2-6.7)
[2023-11-28] MEDS: Normal Saline 1,000 ML 1000 ML IV (10:40)
[2023-11-28 10:53] LABS: ALT 29 U/L (14-59); AST 26 U/L (15-37); Albumin 3.7 g/dL (3.4-5.0); Alkaline Phosphatase 206 U/L (46-116); BUN 35 mg/dL (7-18); Bilirubin, Direct 0.1 mg/dL (0.0-0.2); Bilirubin, Total 0.5 mg/dL (0.2-1.0); C-Reactive Protein 0.87 mg/dL (0.0-0.3); CREATININE 1.5 mg/dL (0.55-1.02); Calcium 9.5 mg/dL (8.5-10.1); Chloride 102 mmol/L (98-107); Estimated GFR 34.79 (mL/min/1.73m2); Glucose 150 mg/dL (74-106); Lipase 25 U/L (16-77); Magnesium 1.8 mg/dL (1.8-2.4); NT-proBNP 1093 pg/mL (<300); Potassium 4.6 mmol/L (3.5-5.1); Sodium 140 mmol/L (136-145); TSH (W/Ref FT4) 1.61 uIU/mL (0.36-3.74); Total Protein 7.8 g/dL (6.4-8.2); Troponin I < 50 ng/L (< or =60)
[2023-11-28] MEDS: Normal Saline 500 ML IV (11:09)
[2023-11-28 11:37] LABS: Procalcitonin < 0.1 ng/mL
[2023-11-28] MEDS: Normal Saline - Diluent 50 ML VIAL IJ (12:04)
[2023-11-28] MEDS: Omnipaque 350 MG/ML 100 ML BTL IJ (12:05)
[2023-11-28 12:18] LABS: Prothrombin Time > 83.4 sec (9.1-11.1)
[2023-11-28 12:19] LABS: INR > 8.8 (0.9-1.1); PTT Activated 88.6 sec (23.6-32.8)
--- NOTE | 2023-11-28 12:20 | DI.CT_ITS ---
Exam(s) CT ABDOMEN PELVIS W EXAM: CT ABDOMEN PELVIS W CLINICAL HISTORY: L flank pain, epigastric tenderness, vomiting. TECHNIQUE: Imaging Protocol: Axial computed tomography images with coronal and sagittal reformatted images were created and reviewed CONTRAST MATERIAL: Intravenous: Omnipaque 350 Contrast volume:100 ml Oral: no COMPARISON: No exams were available for comparison FINDINGS: ABDOMEN and PELVIS: Lung Bases: No acute findings. Dependent changes and respiratory motion. The heart is enlarged. Small to moderate-sized hiatal hernia. Liver: Normal density. No measurable mass. Gallbladder and biliary tract: Status post cholecystectomy. No radiodense calculus or dilation. Pancreas: Mildly atrophic. No abnormal calcifications or inflammatory process. No evidence of mass. Spleen: Normal. Kidneys: Normal size, contour and axis. No radiodense stones. [id number] left hydronephrosis s econdary to a 6 millimeter calculus in the mid ureter. Additional 7 millimeter calculus noted at the lower pole of the left kidney. Perinephric stranding. No right-sided calculi or hydronephrosis is present. No suspicious masses seen. Adrenal glands: No masses seen. Vasculature: Abdominal aorta non-dilated. Atherosclerotic changes. Soft tissues: Unremarkable. Bladder: No gross wall thickening. No calculi.No focal mass. Bowel: Small diverticulum 2nd portion of the duodenum. No obstruction. No bowel wall thickening. A ppendix normal. Normal quantity of stool. Peritoneal cavity: No ascites. No focal collection or mesenteric inflammatory response. Bones: Degenerative changes in the spine. Reproductive organs: Status post hysterectomy. Lymph nodes: Unremarkable. IMPRESSION:: Moderate left hydronephrosis secondary to a 6 millimeter calculus at the mid left urete r. Perinephric stranding. Additional 7 millimeter nonobstructing stone lower pole left kidney. RADIATION DOSE DELIVERED: 1,393.7mGy.cm Total DLP DATA REPOSITORY: All CT scans at this facility are submitted to the National Radiology Data Registry (NRDR) Dose Index Registry (DIR) with the [employer] (ACR). RADIATION OPTIMIZATION: All CT scans at this facility use at least one of these dose optimization te chniques: automated exposure control; mA and/or kV adjustment per patient size (includes targeted exa ms where dose is matched to clinical indication); or iterative reconstruction.
--- NOTE | 2023-11-28 12:30 | DI.RAD_ITS ---
Exam(s) XR CHEST 2V PA LATERAL EXAM: XR CHEST 2V PA LATERAL CLINICAL HISTORY: sepsis, getting fluids, elev BNP, checking edema TECHNIQUE: 2D digital imaging was performed. COMPARISON: CR,XR XR CHEST 2V PA LATERAL from 11/05/2022 FINDINGS: Exam limited by under penetration. Abdominal soft tissues partially obscure the right lung base. HEART: Normal size. Aorta: Not dilated. Calcified. PULMONARY VASCULATURE: Normal. LUNGS: Optimally inflated. No infiltrate or pulmonary edema visible. PLEURAL SPACE: No pleural effusion or pneumothorax. BONE:Unremarkable for age. Soft tissues: Unremarkable. IMPRESSION: Limited exam. No gross evidence of an acute abnormality. DATA REPOSITORY: RADIATION DOSE DELIVERED:
[2023-11-28 12:43] LABS: Lactate 2.4 mmol/L (0.6-1.4)
[2023-11-28 12:49] LABS: Clarity Cloudy (Clear); Specific Gravity 1.032 (1.005-1.025)
[2023-11-28 12:50] LABS: Bilirubin Color Interference (Negative); Blood Color Interference (Negative); Glucose Color Interference mg/dL (Negative); Ketones Color Interference mg/dL (Negative); Leukocyte Esterase Color Interference (Negative); Nitrite Color Interference (Negative); Urobilinogen Color Interference mg/dL (Up to 0.2)
[2023-11-28 13:00] LABS: C & S Indicated? Yes; RBC >50 HPF (0-2)
[2023-11-28 13:01] LABS: Troponin I < 50 ng/L (< or =60)
[2023-11-28] MEDS: cefTRIAXone 2 GM/50 ML BAG IVPB (13:32)
== END 2023-11-28 17:19 | disposition short-term general hospital (02) ==
PROVIDERS: Emergency Provider Physician Assistant; PCP Nurse Practitioner Family
DX: N13.2 Hydronephrosis with renal and ureteral calculous obstruction (principal); A41.9 Sepsis, unspecified organism; I10 Essential (primary) hypertension; Z86.718 Personal history of other venous thrombosis and embolism; Z79.01 Long term (current) use of anticoagulants; Z87.891 Personal history of nicotine dependence
CPT/HCPCS: 36410; 80053; 80076; 83690; 84145; 85652; 87040; 93005; 96361; 96365; 96375; 99285; 71046; 74177; 81003; 81015; 83605; 83735; 83880; 84443; 84484; 85025; 85610; 85730; 86140; 87086; 93010; J0696; J2405; J3260; J3490

== ENCOUNTER 2023-12-21 09:43 | Outpatient (CLI) | payer OTHER, SELFPAY ==
[2023-12-21 12:46] LABS: Anion Gap 9.4 mmol/L (3-11); BUN 46 mg/dL (7-18); CO2 27.6 mmol/L (21.0-32.0); CREATININE 1.4 mg/dL (0.55-1.02); Calcium 9.4 mg/dL (8.5-10.1); Chloride 104 mmol/L (98-107); Glucose 98 mg/dL (74-106); Potassium 4.9 mmol/L (3.5-5.1); Sodium 141 mmol/L (136-145)
[2023-12-21 12:50] LABS: Abs Immature Grans 0.02 10^3/uL (0.0-0.06); Absolute Basophil Count 0.04 10^3/uL (0.0-0.2); Absolute Eosinophil Count 0.14 10^3/uL (0.0-0.7); Absolute Lymphocyte Count 1.47 10^3/uL (1.2-3.4); Absolute Monocyte Count 0.49 10^3/uL (0.1-0.8); Absolute Neutrophil Count 4.55 10^3/uL (1.2-6.7); Basophils % 0.6; Eosinophils % 2.1; HCT 36.6 % (36.0-46.0); HGB 11.4 g/dL (11.2-15.7); Immature Grans % 0.3; Lymphocytes % 21.9; MCH 29.7 pg (27.0-33.0); MCHC 31.1 % (32.0-36.0); MCV 95 fL (80-95); MPV 10.2 fL (8.0-11.0); Monocytes % 7.3; Neutrophils % 67.8; Platelet Count 326 10^3/uL (130-400); RBC 3.84 10^6/uL (3.93-5.22); RDW 14.7 % (11.7-14.6); RDW-SD 51.6 fL; WBC 6.71 10^3/uL (4.4-10.8)
== END 2023-12-21 09:44 | disposition home or self-care (01) ==
LOC: LOS 09:43
PROVIDERS: PCP Nurse Practitioner Family; Referring Provider Nurse Practitioner Family; Visit Provider Nurse Practitioner Family
DX: I10 Essential (primary) hypertension (principal); A41.9 Sepsis, unspecified organism
CPT/HCPCS: 36415; 80048; 85025

== ENCOUNTER 2024-08-27 03:32 | Outpatient (CLI) | payer OTHER, SELFPAY ==
[2024-08-27 13:26] LABS: Anion Gap 9.8 mmol/L (3-11); BUN 34 mg/dL (7-18); CO2 26.2 mmol/L (21.0-32.0); CREATININE 1.1 mg/dL (0.55-1.02); Calcium 9.4 mg/dL (8.5-10.1); Calculated LDL 112 mg/dL (<100); Chloride 106 mmol/L (98-107); Cholesterol 200 mg/dL (<200); Estimated GFR 50.17 (mL/min/1.73m2); Glucose 99 mg/dL (74-106); HDL Cholesterol 67 mg/dL (40-60); Potassium 3.7 mmol/L (3.5-5.1); Sodium 142 mmol/L (136-145); Triglyceride 106 mg/dL (<150)
== END 2024-08-27 03:33 | disposition home or self-care (01) ==
LOC: LOS 03:33
PROVIDERS: PCP Nurse Practitioner Family; Visit Provider Nurse Practitioner Family
DX: Z13.1 Encounter for screening for diabetes mellitus (principal); Z13.6 Encounter for screening for cardiovascular disorders; Z23 Encounter for immunization; Z01.818 Encounter for other preprocedural examination; Z79.01 Long term (current) use of anticoagulants
CPT/HCPCS: 36415; 80048; 80061

== ENCOUNTER 2024-09-12 06:29 | Day surgery (SDC) | payer OTHER, SELFPAY ==
[2024-09-12 06:34] VITALS: BP 128/67; PULSE 78; RESP 18; TEMP 36.4; O2SAT 96
[2024-09-12] MEDS: Tropicam./Phenyleph. (1/2.5%) 5 ML BTL OS ×3 (06:51→07:01)
--- NOTE | 2024-09-12 07:23 | W.ANESPRE ---
General Info Date of Service Date Performed: 09/12/24 Height: 5 ft 3 in Weight: 94.4 kg Body Mass Index (BMI): 36.8 Surgical Procedure: Operation Date: 09/12/24 08:40 Proposed Procedure Side Surgeon p Cataract Extraction with IOL Implant Left Maximiliano Trivedi MD Meds Allergies and Home Medications Allergies Allergy/AdvReac Type Severity Reaction Status Date / Time No Known Allergies Allergy Verified 09/12/24 06:47 Home Medication ?Medication ?Instructions ?Recorded clobetasol-emollient 0.05 % 1 applic topical HS PRN dermatitis 05/02/23 topical cream #15 grams triamcinolone acetonide 0.1 % 1 applic topical BID #30 grams 10/24/23 topical cream apixaban 2.5 mg tablet (Eliquis) 2.5 mg PO BID #180 tabs 12/21/23 triamterene 37.5 0.5 tab (1/2 x 37.5-25 mg) PO 12/21/23 mg-hydrochlorothiazide 25 mg tablet DAILY #90 tab-caps donepezil 10 mg tablet 10 mg PO DAILY 03/04/24 esomeprazole magnesium 20 mg 20 mg PO DAILY #90 tab-caps 03/26/24 capsule,delayed release (Nexium) potassium chloride 20 mEq 20 meq PO DAILY #90 tabs 04/21/24 tablet,extended release atorvastatin 40 mg tablet 40 mg PO DAILY #90 tabs 06/19/24 tetanus-diphtheria toxoids-Td 2 Lf 0.5 ml IM ONCE #0.5 mL 06/19/24 unit-2 Lf unit/0.5 mL IM suspension sodium bicarbonate 650 mg tablet 650 mg PO BID alkalinize urine 07/17/24 #180 tabs lisinopril 20 mg tablet 10 mg (1/2 x 20 mg) PO DAILY #90 09/01/24 tabs Current Visit Medications: Current Medications Generic Name Dose Route Start Last Admin Trade Name Freq PRN Reason Stop Dose Admin Acetaminophen 1,000 mg 09/12/24 06:00 Acetaminophen 500 Mg Tab PO 10/12/24 05:59 Q4H PRN PRN Balanced Salt Solution 500 ml 09/12/24 06:00 Balanced Salt Soln.-Plus 500 Ml Bag OP 10/12/24 05:59 DIRECTED [facility] Miscellaneous Medication 0 ml 09/12/24 06:00 Prednisolone 1%, Moxifloxacin 0.5%, Bromfenac 0.09% 5.6ml Btl OS 10/12/24 05:59 DIRECTED [facility] Miscellaneous Medication 0 ml 09/12/24 06:00 09/12/24 07:01 Tropicam./Phenyleph. (1/2.5%) 5 Ml Btl OS 10/12/24 05:59 1 drp DIRECTED [facility] Administration Tetracaine HCl 0 ml 09/12/24 06:00 Tetracaine 0.5% 4 Ml Btl OS 10/12/24 05:59 DIRECTED [facility] PFSH Active Problems Active Problems: Problem Status Onset Code Posterior subcapsular age-related cataract of left eye Acute H25.042 Nuclear age-related cataract, left eye Acute H25.12 Stage 3b chronic kidney disease Acute N18.32 Uric acid nephrolithiasis Acute N20.0 Memory loss Acute R41.3 Ulcer of right foot limited to breakdown of skin Acute L97.511 Hammer toes of both feet Acute M20.41, M20.42 Dizziness Acute R42 Subtherapeutic anticoagulation Acute Z51.81, Z79.01 Hypomagnesemia Acute E83.42 Fall Acute W19.XXXA Bilateral leg weakness Acute R29.898 Leg edema, left Acute R60.0 At risk for falls Acute Z91.81 Leg weakness, bilateral Acute R29.898 Severe obesity (BMI 35.0-39.9) with comorbidity Chronic E66.01 Hyperlipidemia Chronic E78.5 History of DVT (deep vein thrombosis) Chronic Z86.718 Chronic anticoagulation Chronic Z79.01 Hypertension Chronic GERD (gastroesophageal reflux disease) Chronic Chronic diarrhea Chronic Varicose veins Chronic Peripheral neuropathy 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 Medical History Medical History Left ureteral calculus Corns/callosities Onychomycosis Eczema Venous stasis dermatitis Adenomatous colon polyp Lactose intolerance Surgical History Surgical History squamous papilloma excision of vocal cord 1998 exploratory lung surgery 1985 Vaginal hysterectomy 1984- with bladder lift Colonoscopy - MAC 2010 Cholecystectomy January 2005 Tobacco Smoking/Tobacco Use Status: Former Tobacco Use Passive smoking exposure: Yes Alcohol Alcohol Intake: never Substance Use Substance use: Never Substance use type: does not use Vital Signs and Lab Results Vital Signs Most Recent Vital Signs in EMR: Most Recent Vital Signs Temp Pulse Resp BP Pulse Ox 36.4 C L 78 18 128/67 96 09/12/24 06:34 09/12/24 06:34 09/12/24 06:34 09/12/24 06:34 09/12/24 06:34 Lab Results Blood Type / Crossmatch: No Data to Display Complete Blood Count: No Data to Display Complete Metabolic Panel: Sodium 142 mmol/L (136-145) 08/27/24 09:15 Potassium 3.7 mmol/L (3.5-5.1) 08/27/24 09:15 Chloride 106 mmol/L (98-107) 08/27/24 09:15 Carbon Dioxide 26.2 mmol/L (21.0-32.0) 08/27/24 09:15 BUN 34 mg/dL (7-18) H 08/27/24 09:15 Creatinine 1.1 mg/dL (0.55-1.02) H 08/27/24 09:15 Est GFR (CKD-EPI 2020) 50.17 (mL/min/1.73m2) 08/27/24 09:15 Calcium 9.4 mg/dL (8.5-10.1) 08/27/24 09:15 Glucose 99 mg/dL (74-106) 08/27/24 09:15 Liver Function Panel: No Data to Display Coagulation Panel: No Data to Display Cardiac Panel: No Data to Display Arterial Blood Gas: No Data to Display Venous Blood Gas: No Data to Display Pancreas Panel: No Data to Display Thyroid Panel: No Data to Display Infectious Disease: No Data to Display Blood Cultures: No Data to Display Toxicology Panel: No Data to Display Anesthesia Assessment and Plan Anesthesia History Personal History: No History of Anesthesia Complications Family History: No Family History of Anesthesia Complications Exercise Tolerance Exercise Tolerance: Metabolic Equivalents<4 Pertinent Negatives Pertinent Negatives: No Symptoms of GERD, No Major Cardiovascular Symptoms or Complaints and No Major Pulmonary Symptoms or Complaints Cardiac & Pulmonary Exam Cardiac Exam: Normal S1/S2 Heart Sounds Pulmonary Exam: Clear Bilateral Breath Sounds Implantable Cardiac Device Does patient have a Pacemaker or an ICD?: No Airway Exam Known Difficult Airway: No Mallampati Class: 2 Mouth Opening: Normal (> 3cm) Thyromental Distance: Greater than 3 cm Neck Range of Motion: Full ROM Neck Circumference: Normal Teeth Condition: Normal Dentition and Removable Dentures/Plates Upper ASA Classification ASA Score: ASA 2 Emergency Case?: No NPO Status NPO Status: NPO Clears >2 hours, Solids >8 hours Anesthesia Plan Resuscitation Status: Full Code Anesthesia Technique: MAC Anesthesia Airway Planned: Natural Airway Monitors Used: Standard Monitors
[2024-09-12 07:35] VITALS: BMI 36.8
[2024-09-12] MEDS: Tetracaine 0.5% 4 ML BTL OS (08:25)
[2024-09-12] MEDS: Povidone-Iodine Ophth 30 ML BTL (08:25)
[2024-09-12] MEDS: Balanced Salt Soln.-PLUS 500 ML BAG OP (08:33)
[2024-09-12] MEDS: Duovisc Viscoelastic System EACH 1 EACH (08:33)
[2024-09-12] MEDS: Lidocaine 1% Pres-Free 5 ML VIAL (08:34)
[2024-09-12] MEDS: Prednisolone 1%, Moxifloxacin 0.5%, Bromfenac 0.09% 5.6ML BTL OS (08:51)
[2024-09-12 08:55] VITALS: BP 112/48; PULSE 61; RESP 14; TEMP 36.2; O2SAT 96
--- NOTE | 2024-09-12 08:56 | W.PM.DSUDISC ---
Date of service: 09/12/24 Time of Service: 08:56 Discharge Plan Disposition Patient Disposition: Home Discharge Details Attending Provider: Maximiliano Trivedi Primary Care Provider: Faustino Berry Home Meds and New Rx's Prescriptions: No Action clobetasol-emollient 0.05 % cream 1 applic Topical HS PRN (Reason: dermatitis) Qty: 15 0RF triamcinolone acetonide 0.1 % cream 1 applic topical BID Qty: 30 3RF atorvastatin 40 mg tablet 40 mg PO DAILY Qty: 90 4RF tetanus-diphtheria toxoids-Td 2-2 Lf unit/0.5 mL suspension 0.5 ml IM ONCE Qty: 0.5 0RF Eliquis 2.5 mg tablet 2.5 mg PO BID Qty: 180 4RF triamterene-hydrochlorothiazid 37.5-25 mg tablet 0.5 tab PO DAILY Qty: 90 4RF donepezil 10 mg tablet 10 mg PO DAILY sodium bicarbonate 650 mg tablet 650 mg PO BID Qty: 180 3RF esomeprazole magnesium [Nexium] 20 mg capsule,delayed release(DR/EC) 20 mg PO DAILY Qty: 90 3RF potassium chloride 20 mEq tablet extended release 20 meq PO DAILY Qty: 90 4RF lisinopril 20 mg tablet 10 mg PO DAILY Qty: 90 4RF Discharge Instructions Stand Alone Forms: DSU Post-Op CataractSabine (DSU) Discharge Orders Discharge Orders: Discharge Order (Routine); Ordered 09/12/24 Ordered By: Maximiliano Trivedi DS: Diagnosis Discharge Diagnosis (1) Posterior subcapsular age-related cataract of left eye: Status: Resolved (2) Nuclear age-related cataract, left eye: Status: Resolved
--- NOTE | 2024-09-12 08:58 | W.PM.OP ---
Date of service: 09/12/24 Time of Service: 08:58 Operative Note Operative Note DATE OF PROCEDURE: 09/12/24 PRE-OP DIAGNOSIS: Nuclear/posterior subcapsular cataract, left eye POST-OP DIAGNOSIS: same PROCEDURE: Cataract extraction using phacoemulsification with intraocular lens implant, left eye SURGEON: Maximiliano Trivedi ANESTHESIA TYPE: Local By Surgeon and MAC Refer to Anesthesia Record PATHOLOGY: none sent COMPLICATIONS: None Patient was transported to: same day Patient's condition: stable Implants: Vasu Clareon [id number] Indications: Progressive decreased vision due to cataract, left eye Procedure Description: CATARACT SURGERY OPERATIVE REPORT PREOPERATIVE DIAGNOSIS: Nuclear/posterior subcapsular cataract, left eye POSTOPERATIVE DIAGNOSIS: Same OPERATION: Cataract extraction using phacoemulsification with posterior chamber intraocular lens implant, left eye. IOL: IOL Java Scala Developer/Model: Vasu Clareon [id number] IOL Power: + 19.5 diopters IOL Serial Number: [id number] Optic Diameter: 6.0mm Haptic/Overall Diameter: 13.0mm PHACO INFO: Vasu[employer] Technologiesurion Vision System with OZil and Active Fluidics Cumulative Dispersed Energy (CDE): 7.89 seconds SURGEON: Maximiliano Trivedi MD, SHRUTI ANESTHESIA: Monitored Anesthesia Care (MAC), with local sub-tenon's anesthetic infiltration COMPLICATIONS: None SPECIMENS: None INDICATIONS FOR PROCEDURE: The patient is an 84-year-old lady with history of diminished visual acuity in her left eye secondary to the development of nuclear/posterior subcapsular cataract in the left eye. She is significantly symptomatic that she desires cataract surgery and attempt to improve and maximize her vision. See office notes for detailed information. PROCEDURE: The correct surgical eye was identified and marked as the left eye and the pupil was dilated in the preoperative area using mydriatics and cycloplegics. The dilated pupil size was 7.0 mm. Oral sedation was administered in the form of an Imprimis MKO Melt (midazolam 3mg/ketamine 25mg/ondansetron 2mg). The patient was brought to the operating room where cardiopulmonary monitoring was instituted and surgical time-out was performed, confirming the correct operative eye and IOL power. Topical anesthesia was administered and ophthalmic povidone-iodine 5% was instilled into the conjunctival fornices. The bishop-ocular area was prepped with Betadine 10% solution and draped in the usual sterile fashion for intraocular surgery, including an aperture drape. A Tegaderm transparent film dressing was cut in half and used to cover the lashes and lid margins. Care was taken to sequester the lashes and lid margins under the Tegaderm dressing. A lid speculum was placed between the lids of the operative eye and the Vasu LuxOR Revalia operating microscope was maneuvered into position. Niyah scissors were then used to make a conjunctival buttonhole approximately 6mm posterior to the limbus in the inferonasal quadrant. Blunt dissection was carried out to expose bare sclera, and a blunt-tipped sub-tenon?s anesthesia cannula was introduced and passed posteriorly along the globe where non-preserved plain lidocaine was injected into posterior sub-Tenon?s space. A sideport knife was used to make a paracentesis port. Intraocular phenylephrine/lidocaine was injected into the anterior chamber. The anterior chamber was then filled with viscoelastic. A keratome knife was used construct a two-plane clear corneal tunnel extending 2.0mm into clear cornea. A flap was raised on the anterior capsule and capsulorhexis forceps were used to complete a continuous curvilinear capsulorhexis of 5.0 mm. Balanced salt solution was then used to perform cortical cleaving hydrodissection and nuclear hydrodelineation until the lens could be freely rotated within the capsular bag. The lens nucleus was then disassembled and removed within the capsular bag and iris plane using phacoemulsification. Residual cortical material was removed using the irrigation/aspiration handpiece. The posterior capsule was carefully polished to remove as much residual lens epithelial cells as safely possible. The capsular bag was then inflated and the anterior chamber deepened with viscoelastic. The lens implant described above was inserted into the capsular bag using the Vasu Autonome Injector. A Kuglen hook was used to dial the IOL into position. Residual viscoelastic was then removed first from posterior to the IOL, then from the anterior chamber using the I/A handpiece. The lens implant was noted to center nicely within the capsular bag. The incisions were stromally hydrated, and the anterior chamber was reformed using BSS. Then 0.5cc of moxifloxacin 1.0mg/ml were injected into the capsular bag and anterior chamber. The incisions were checked with a Weck spear and found to be secure. Several drops of ophthalmic povidone-iodine 5% were then applied to the eye followed by two drops of combination steroid/NSAID/antibiotic solution. The drapes were removed and a clear plastic protective eye shield was placed over the eye. The patient was then returned to Same Day Surgery in stable condition.
[2024-09-12 09:23] VITALS: BP 111/54; PULSE 70; RESP 16; TEMP 36.2; O2SAT 93
--- NOTE | 2024-09-12 09:23 | W.ANESPOSTOP ---
Postoperative Evaluation Date, Time and Location Date Performed: 09/12/24 Time Performed: 09:03 Patient Location: Day Surgery Unit Vital Signs Most Recent Imported Vital Signs: Most Recent Vital Signs Temp Pulse Resp BP Pulse Ox 36.2 C L 61 14 112/48 L 96 09/12/24 08:55 09/12/24 08:55 09/12/24 08:55 09/12/24 08:55 09/12/24 08:55 Pain Score Most Recent Pain Score: Most Recent Pain Score Pain Level 0 09/12/24 08:55 Assessment Mental Status: Awake (Alert & Oriented to Patient Baseline) Airway and Respiratory Function: Patent airway with normal (patient baseline) respiratory exam Cardiovascular Function: Hemodynamically Stable Hydration Status: Adequately Hydrated Nausea & Vomiting: No Nausea or Vomiting Pain: Pt. Denies Any Pain Peripheral Nerve Block: Patient did not receive a nerve block
== END 2024-09-12 09:27 | disposition home or self-care (01) ==
LOC: SUR 06:29
PROVIDERS: PCP Nurse Practitioner Family; Visit Provider Ophthalmology
PROC: (CPT 66984; principal; 2024-09-12 08:30)
DX: H25.042 Posterior subcapsular polar age-related cataract, left eye (principal); H25.12 Age-related nuclear cataract, left eye
CPT/HCPCS: 66984; 00123; V2632; J2003

== ENCOUNTER 2024-09-26 08:26 | Day surgery (SDC) | payer OTHER, SELFPAY ==
[2024-09-26] MEDS: Tropicam./Phenyleph. (1/2.5%) 5 ML BTL OD ×3 (09:00→09:11)
[2024-09-26 09:01] VITALS: BP 133/71; PULSE 77; RESP 17; TEMP 36.2; O2SAT 95
--- NOTE | 2024-09-26 09:10 | W.ANESPRE ---
General Info Date of Service Date Performed: 09/26/24 Height: 5 ft 3 in Weight: 93.2 kg Body Mass Index (BMI): 36.3 Surgical Procedure: Operation Date: 09/26/24 11:40 Proposed Procedure Side Surgeon p Cataract Extraction with IOL Implant Right Maximiliano Trivedi MD Meds Allergies and Home Medications Allergies Allergy/AdvReac Type Severity Reaction Status Date / Time No Known Allergies Allergy Verified 09/26/24 09:06 Home Medication ?Medication ?Instructions ?Recorded clobetasol-emollient 0.05 % 1 applic topical HS PRN dermatitis 05/02/23 topical cream #15 grams triamcinolone acetonide 0.1 % 1 applic topical BID #30 grams 10/24/23 topical cream apixaban 2.5 mg tablet (Eliquis) 2.5 mg PO BID #180 tabs 12/21/23 triamterene 37.5 0.5 tab (1/2 x 37.5-25 mg) PO 12/21/23 mg-hydrochlorothiazide 25 mg tablet DAILY #90 tab-caps donepezil 10 mg tablet 10 mg PO DAILY 03/04/24 esomeprazole magnesium 20 mg 20 mg PO DAILY #90 tab-caps 03/26/24 capsule,delayed release (Nexium) potassium chloride 20 mEq 20 meq PO DAILY #90 tabs 04/21/24 tablet,extended release atorvastatin 40 mg tablet 40 mg PO DAILY #90 tabs 06/19/24 tetanus-diphtheria toxoids-Td 2 Lf 0.5 ml IM ONCE #0.5 mL 06/19/24 unit-2 Lf unit/0.5 mL IM suspension sodium bicarbonate 650 mg tablet 650 mg PO BID alkalinize urine 07/17/24 #180 tabs lisinopril 20 mg tablet 10 mg (1/2 x 20 mg) PO DAILY #90 09/01/24 tabs Current Visit Medications: Current Medications Generic Name Dose Route Start Last Admin Trade Name Freq PRN Reason Stop Dose Admin Acetaminophen 1,000 mg 09/26/24 08:00 Acetaminophen 500 Mg Tab PO 10/26/24 07:59 Q4H PRN PRN Balanced Salt Solution 500 ml 09/26/24 08:00 Balanced Salt Soln.-Plus 500 Ml Bag OP 10/26/24 07:59 DIRECTED [facility] Miscellaneous Medication 0 ml 09/26/24 08:00 Prednisolone 1%, Moxifloxacin 0.5%, Bromfenac 0.09% 5.6ml Btl OD 10/26/24 07:59 DIRECTED [facility] Miscellaneous Medication 0 ml 09/26/24 08:00 09/26/24 09:07 Tropicam./Phenyleph. (1/2.5%) 5 Ml Btl OD 10/26/24 07:59 1 drp DIRECTED [facility] Administration Tetracaine HCl 0 ml 09/26/24 08:00 Tetracaine 0.5% 4 Ml Btl OD 10/26/24 07:59 DIRECTED [facility] PFSH Active Problems Active Problems: Problem Status Onset Code Posterior subcapsular age-related cataract, right eye Acute H25.041 Nuclear age-related cataract, right eye Acute H25.11 Posterior subcapsular age-related cataract of left eye Resolved H25.042 Nuclear age-related cataract, left eye Resolved H25.12 Stage 3b chronic kidney disease Acute N18.32 Uric acid nephrolithiasis Acute N20.0 Memory loss Acute R41.3 Ulcer of right foot limited to breakdown of skin Acute L97.511 Hammer toes of both feet Acute M20.41, M20.42 Dizziness Acute R42 Subtherapeutic anticoagulation Acute Z51.81, Z79.01 Hypomagnesemia Acute E83.42 Fall Acute W19.XXXA Bilateral leg weakness Acute R29.898 Leg edema, left Acute R60.0 At risk for falls Acute Z91.81 Leg weakness, bilateral Acute R29.898 Severe obesity (BMI 35.0-39.9) with comorbidity Chronic E66.01 Hyperlipidemia Chronic E78.5 History of DVT (deep vein thrombosis) Chronic Z86.718 Chronic anticoagulation Chronic Z79.01 Hypertension Chronic GERD (gastroesophageal reflux disease) Chronic Chronic diarrhea Chronic Varicose veins Chronic Peripheral neuropathy 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 Medical History Medical History Left ureteral calculus Corns/callosities Onychomycosis Eczema Venous stasis dermatitis Adenomatous colon polyp Lactose intolerance Surgical History Surgical History squamous papilloma excision of vocal cord 1998 exploratory lung surgery 1985 Vaginal hysterectomy 1984- with bladder lift Colonoscopy - MAC 2011 Cholecystectomy January 2005 Tobacco Smoking/Tobacco Use Status: Former Tobacco Use Passive smoking exposure: Yes Alcohol Alcohol Intake: never Substance Use Substance use: Never Substance use type: does not use Vital Signs and Lab Results Vital Signs Most Recent Vital Signs in EMR: Most Recent Vital Signs Temp Pulse Resp BP Pulse Ox 36.2 C L 77 17 133/71 95 09/26/24 09:01 09/26/24 09:01 09/26/24 09:01 09/26/24 09:01 09/26/24 09:01 Lab Results Blood Type / Crossmatch: No Data to Display Complete Blood Count: No Data to Display Complete Metabolic Panel: Sodium 142 mmol/L (136-145) 08/27/24 09:15 Potassium 3.7 mmol/L (3.5-5.1) 08/27/24 09:15 Chloride 106 mmol/L (98-107) 08/27/24 09:15 Carbon Dioxide 26.2 mmol/L (21.0-32.0) 08/27/24 09:15 BUN 34 mg/dL (7-18) H 08/27/24 09:15 Creatinine 1.1 mg/dL (0.55-1.02) H 08/27/24 09:15 Est GFR (CKD-EPI 2020) 50.17 (mL/min/1.73m2) 08/27/24 09:15 Calcium 9.4 mg/dL (8.5-10.1) 08/27/24 09:15 Glucose 99 mg/dL (74-106) 08/27/24 09:15 Liver Function Panel: No Data to Display Coagulation Panel: No Data to Display Cardiac Panel: No Data to Display Arterial Blood Gas: No Data to Display Venous Blood Gas: No Data to Display Pancreas Panel: No Data to Display Thyroid Panel: No Data to Display Infectious Disease: No Data to Display Blood Cultures: No Data to Display Toxicology Panel: No Data to Display Imaging and Studies Imaging and Studies Study information below may be from another EMR and interpreted by another provider. Please see original notes in EMR for more complete details. EKG Summary: 11/28/23: Exam: Resting ECG Reason for Exam: dizziness Patient Location: E HR:81 bpm ECG Measurements Heart Rate 81 AXIS [place] 174 P 63 QRSd 88 QRS 31 QT 360 T48 QTc 418 Conclusion Sinus rhythm...normal P axis, V-rate 60- 99 Low voltage, precordial leads...precordial leads <1.0mV sinus rhythm normal axis, normal intervals, non ischemic I have reviewed and I agree with the emergency room physician's ECG interpretation. Anesthesia Assessment and Plan Anesthesia History Personal History: No History of Anesthesia Complications Family History: No Family History of Anesthesia Complications Exercise Tolerance Exercise Tolerance: Metabolic Equivalents<4 Cardiac & Pulmonary Exam Cardiac Exam: Normal S1/S2 Heart Sounds Pulmonary Exam: Clear Bilateral Breath Sounds Implantable Cardiac Device Does patient have a Pacemaker or an ICD?: No Airway Exam Known Difficult Airway: No Mallampati Class: 2 Mouth Opening: Normal (> 3cm) Thyromental Distance: Greater than 3 cm Neck Range of Motion: Full ROM Neck Circumference: Normal Teeth Condition: Normal Dentition and Removable Dentures/Plates Upper ASA Classification ASA Score: ASA 2 Emergency Case?: No NPO Status NPO Status: NPO Clears >2 hours, Solids >8 hours Anesthesia Plan Resuscitation Status: Full Code Anesthesia Technique: MAC Anesthesia Airway Planned: Natural Airway Monitors Used: Standard Monitors Preoperative Comments:: Received MKO last time, but plans for Local today.
[2024-09-26 09:13] VITALS: BMI 36.3
[2024-09-26] MEDS: Tetracaine 0.5% 4 ML BTL OD (10:08)
[2024-09-26] MEDS: Lidocaine 1% Pres-Free 5 ML VIAL (10:18)
[2024-09-26] MEDS: Duovisc Viscoelastic System EACH 1 EACH (10:20)
[2024-09-26] MEDS: Povidone-Iodine Ophth 30 ML BTL (10:21)
[2024-09-26] MEDS: Balanced Salt Soln.-PLUS 500 ML BAG OP (10:22)
[2024-09-26] MEDS: Prednisolone 1%, Moxifloxacin 0.5%, Bromfenac 0.09% 5.6ML BTL OD (10:23)
--- NOTE | 2024-09-26 10:35 | W.PM.DSUDISC ---
Date of service: 09/26/24 Time of Service: 10:35 Discharge Plan Disposition Patient Disposition: Home Discharge Details Attending Provider: Maximiliano Trivedi Primary Care Provider: Faustino Berry Home Meds and New Rx's Prescriptions: No Action clobetasol-emollient 0.05 % cream 1 applic Topical HS PRN (Reason: dermatitis) Qty: 15 0RF triamcinolone acetonide 0.1 % cream 1 applic topical BID Qty: 30 3RF atorvastatin 40 mg tablet 40 mg PO DAILY Qty: 90 4RF tetanus-diphtheria toxoids-Td 2-2 Lf unit/0.5 mL suspension 0.5 ml IM ONCE Qty: 0.5 0RF Eliquis 2.5 mg tablet 2.5 mg PO BID Qty: 180 4RF triamterene-hydrochlorothiazid 37.5-25 mg tablet 0.5 tab PO DAILY Qty: 90 4RF donepezil 10 mg tablet 10 mg PO DAILY sodium bicarbonate 650 mg tablet 650 mg PO BID Qty: 180 3RF esomeprazole magnesium [Nexium] 20 mg capsule,delayed release(DR/EC) 20 mg PO DAILY Qty: 90 3RF potassium chloride 20 mEq tablet extended release 20 meq PO DAILY Qty: 90 4RF lisinopril 20 mg tablet 10 mg PO DAILY Qty: 90 4RF Discharge Instructions Stand Alone Forms: DSU Post-Op CataractSabine (DSU) Discharge Orders Discharge Orders: Discharge Order (Routine); Ordered 09/26/24 Ordered By: Maximiliano Trivedi DS: Diagnosis Discharge Diagnosis (1) Posterior subcapsular age-related cataract, right eye: Status: Resolved (2) Nuclear age-related cataract, right eye: Status: Resolved
[2024-09-26 10:36] VITALS: BP 127/60; PULSE 64; RESP 16; TEMP 36.4; O2SAT 97
--- NOTE | 2024-09-26 10:36 | W.PM.OP ---
Operative Note Operative Note PRE-OP DIAGNOSIS: Nuclear/posterior subcapsular cataract, right eye POST-OP DIAGNOSIS: same PROCEDURE: Cataract extraction using phacoemulsification with intraocular lens implant, right eye SURGEON: Maximiliano Trivedi ANESTHESIA TYPE: Local By Surgeon and MAC Refer to Anesthesia Record ESTIMATED BLOOD LOSS: 0 PATHOLOGY: none sent COMPLICATIONS: None Patient was transported to: same day Patient's condition: stable Implants: Vasu Clareon [id number] Indications: Progressive decreased vision due to cataract, right eye Procedure Description: CATARACT SURGERY OPERATIVE REPORT PREOPERATIVE DIAGNOSIS: Nuclear/posterior subcapsular cataract, right eye POSTOPERATIVE DIAGNOSIS: Same OPERATION: Cataract extraction using phacoemulsification with posterior chamber intraocular lens implant, right eye. IOL: IOL [employer] Cashier/Model: Vasu Clareon [id number] IOL Power: + 20.5 diopters IOL Serial Number: [id number] Optic Diameter: 6.0mm Haptic/Overall Diameter: 13.0mm PHACO INFO: Vasu [employer]urion Vision System with OZil and Active Fluidics Cumulative Dispersed Energy (CDE): 9.0 seconds SURGEON: Maximiliano Trivedi MD, SHRUTI ANESTHESIA: Monitored Anesthesia Care (MAC), with local sub-tenon's anesthetic infiltration COMPLICATIONS: None SPECIMENS: None INDICATIONS FOR PROCEDURE: The patient is an 84-year-old lady with history of diminished visual acuity in both eyes secondary to the development of bilateral nuclear/posterior subcapsular cataract. She has already undergone cataract surgery in the left eye and is doing well postoperatively. She now presents for cataract surgery in the right eye. See office notes for detailed information. PROCEDURE: The correct surgical eye was identified and marked as the right eye and the pupil was dilated in the preoperative area using mydriatics and cycloplegics. The dilated pupil size was 8.0 mm. The patient elected to proceed without oral sedation. The patient was brought to the operating room where cardiopulmonary monitoring was instituted and surgical time-out was performed, confirming the correct operative eye and IOL power. Topical anesthesia was administered and ophthalmic povidone-iodine 5% was instilled into the conjunctival fornices. The bishop-ocular area was prepped with Betadine 10% solution and draped in the usual sterile fashion for intraocular surgery, including an aperture drape. A Tegaderm transparent film dressing was cut in half and used to cover the lashes and lid margins. Care was taken to sequester the lashes and lid margins under the Tegaderm dressing. A lid speculum was placed between the lids of the operative eye and the Vasu LuxOR Revalia operating microscope was maneuvered into position. Niyah scissors were then used to make a conjunctival buttonhole approximately 6mm posterior to the limbus in the inferonasal quadrant. Blunt dissection was carried out to expose bare sclera, and a blunt-tipped sub-tenon?s anesthesia cannula was introduced and passed posteriorly along the globe where non-preserved plain lidocaine was injected into posterior sub-Tenon?s space. A sideport knife was used to make a paracentesis port. Intraocular phenylephrine/lidocaine was injected into the anterior chamber. The anterior chamber was then filled with viscoelastic. A keratome knife was used to construct a two--plane clear corneal tunnel extending 2.0mm into clear cornea. A flap was raised on the anterior capsule and capsulorhexis forceps were used to complete a continuous curvilinear capsulorhexis of 5.0 mm. Balanced salt solution was then used to perform cortical cleaving hydrodissection and nuclear hydrodelineation until the lens could be freely rotated within the capsular bag. The lens nucleus was then disassembled and removed within the capsular bag and iris plane using phacoemulsification. Residual cortical material was removed using the I/A handpiece. The posterior capsule was carefully polished to remove as much residual lens epithelial cells as safely possible. The capsular bag was then inflated and the anterior chamber deepened with cohesive viscoelastic. The lens implant described above was inserted into the capsular bag using the Vasu Autonome Injector. A Kuglen hook was used to dial the IOL into position. Residual viscoelastic was then removed first from posterior to the IOL, then from the anterior chamber using the I/A handpiece. The lens implant was noted to center nicely within the capsular bag. The incisions were stromally hydrated, and the anterior chamber was reformed using BSS. Then 0.5cc of moxifloxacin 1.0mg/ml were injected into the capsular bag and anterior chamber. The incisions were checked with a Weck spear and found to be secure. Several drops of ophthalmic povidone-iodine 5% were then applied to the eye followed by two drops of combination steroid/NSAID/antibiotic solution. The drapes were removed and a clear plastic protective eye shield was placed over the eye. The patient was then returned to Same Day Surgery in stable condition. Date of Procedure: 09/26/24
--- NOTE | 2024-09-26 10:55 | W.ANESPOSTOP ---
Postoperative Evaluation Date, Time and Location Date Performed: 09/26/24 Time Performed: 10:43 Patient Location: Day Surgery Unit Vital Signs Most Recent Imported Vital Signs: Most Recent Vital Signs Temp Pulse Resp BP Pulse Ox 36.4 C L 64 16 127/60 97 09/26/24 10:36 09/26/24 10:36 09/26/24 10:36 09/26/24 10:36 09/26/24 10:36 Pain Score Most Recent Pain Score: Most Recent Pain Score Pain Level 0 09/26/24 10:36 Assessment Mental Status: Awake (Alert & Oriented to Patient Baseline) Airway and Respiratory Function: Patent airway with normal (patient baseline) respiratory exam Cardiovascular Function: Hemodynamically Stable Hydration Status: Adequately Hydrated Nausea & Vomiting: No Nausea or Vomiting Pain: Pt. Denies Any Pain Peripheral Nerve Block: Patient did not receive a nerve block
== END 2024-09-26 11:15 | disposition home or self-care (01) ==
LOC: SUR 08:26
PROVIDERS: PCP Nurse Practitioner Family; Visit Provider Ophthalmology
PROC: (CPT 66984; principal; 2024-09-26 11:30)
DX: H25.041 Posterior subcapsular polar age-related cataract, right eye (principal); H25.11 Age-related nuclear cataract, right eye; Z98.42 Cataract extraction status, left eye
CPT/HCPCS: 66984; 00123; V2632; J2003

== ENCOUNTER 2025-10-02 07:40 | Emergency (ER) | payer SELFPAY ==
[2025-10-02] VITALS (45 sets, daily range): BP systolic 105–143; BP diastolic 42–75; PULSE 57–88; RESP 13–27; TEMP 36.4; O2SAT 93–99
--- NOTE | 2025-10-02 07:52 | DI.CT_ITS ---
Exam(s) CT LUMBAR SPINE WO EXAM: CT LUMBAR SPINE WO CLINICAL HISTORY: fall, low back/buttock pain. TECHNIQUE: Imaging Protocol: Axial computed tomography images with coronal and sagittal reformatted images were created and reviewed COMPARISON: CT CT ABDOMEN PELVIS W from 11/28/2023 FINDINGS: Bones: The last intervertebral disc space is designated the L5/S1 level for the numbering purpose of this examination. The vertebral body heights are well maintained. Small nodes are noted at this endplates of L2 through L4. Disc space narrowing at L5-S1 with endplate osteophytes. Facet degenerative changes are present greatest at L4-5 causing mild spondylolisthesis. This is stable. There is also severe central canal stenosis at this level. This is grossly unchanged. No fracture is seen. Soft Tissues: The paraspinal soft tissues are unremarkable. IMPRESSION: Normal degenerative changes, greatest at L4-5 and L5-S1. No acute fracture. RADIATION DOSE DELIVERED: 1,570.45mGy.cm Total DLP DATA REPOSITORY: All CT scans at this facility are submitted to the National Radiology Data Registry (NRDR) Dose Index Registry (DIR) with the [employer] (ACR). RADIATION OPTIMIZATION: All CT scans at this facility use at least one of these dose optimization techniques: automated exposure control; mA and/or kV adjustment per patient size (includes targeted exams where dose is matched to clinical indication); or iterative reconstruction.
--- NOTE | 2025-10-02 07:52 | DI.CT_ITS ---
Exam(s) CT PELVIC WO EXAM: CT PELVIC WO CLINICAL HISTORY: fall, buttock pain. TECHNIQUE: Imaging Protocol: Axial computed tomography images with coronal and sagittal reformatted images were created and reviewed. CONTRAST MATERIAL: Oral: no COMPARISON: CT CT ABDOMEN PELVIS W from 11/28/2023 FINDINGS: Bladder: Symmetric distention, no gross wall thickening. Bowel: No obstruction or bowel wall thickening. Peritoneal cavity: No ascites, collection or mesenteric inflammatory response. Reproductive: Hysterectomy. Bones: No fracture. Soft tissues: Unremarkable. IMPRESSION: No acute abnormality RADIATION DOSE DELIVERED: 1,570.45mGy.cmTotal DLP DATA REPOSITORY: All CT scans at this facility are submitted to the National Radiology Data Registry (NRDR) Dose Index Registry (DIR) with the [employer] (ACR). RADIATION OPTIMIZATION: All CT scans at this facility use at least one of these dose optimization techniques: automated exposure control; mA and/or kV adjustment per patient size (includes targeted exams where dose is matched to clinical indication); or iterative reconstruction.
[2025-10-02 08:02] LABS: Abs Immature Grans 0.03 10^3/uL (0.0-0.06); HCT 39.1 % (36.0-46.0); HGB 13.0 g/dL (11.2-15.7); Immature Grans % 0.3 %; MCH 29.1 pg (27.0-33.0); MCHC 33.2 % (32.0-36.0); MCV 88 fL (80-95); MPV 9.4 fL (8.0-11.0); Platelet Count 171 10^3/uL (130-400); RBC 4.46 10^6/uL (3.93-5.22); RDW 13.1 % (11.7-14.6); RDW-SD 42.1 fL; WBC 10.76 10^3/uL (4.4-10.8)
[2025-10-02 08:15] LABS: INR 1.2 (0.9-1.1); Prothrombin Time 11.6 sec (9.1-11.1)
[2025-10-02 08:26] LABS: Magnesium 1.7 mg/dL (1.6-2.6)
[2025-10-02 08:37] LABS: ALT 16 U/L (10-49); AST 23 U/L (<34); Albumin 4.1 g/dL (3.2-5.0); Alkaline Phosphatase 162 U/L (46-116); Anion Gap 11 mmol/L (3-11); BUN 23 mg/dL (9-23); Bilirubin, Total 0.90 mg/dL (0.2-1.2); CO2 26.5 mmol/L (20.0-31.0); Calcium 9.0 mg/dL (8.3-10.6); Chloride 98 mmol/L (98-107); Creatine Kinase 192 U/L (34-145); Glucose 111 mg/dL (74-106); Potassium 3.8 mmol/L (3.5-5.1); Sodium 136 mmol/L (136-145); Total Protein 7.1 g/dL (5.7-8.2)
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
[2025-10-02] MEDS: Normal Saline 500 ML IV (09:37)
[2025-10-02 11:11] LABS: Glucose Negative (Negative)
[2025-10-02 11:24] LABS: C & S Indicated? No; RBC 0-2 HPF (0-2); WBC 0-2 HPF (0-5)
[2025-10-02] MEDS: cefTRIAXone 1 GM/50 ML BAG IVPB (11:28)
--- NOTE | 2025-10-04 07:30 | ED.FU.B_ITS ---
Date of service: 10/04/25 Time of Service: 07:30 Follow Up Plan: Urine culture resulted my shift. Patient had been discharged on third- generation cephalosporin:cefpodoxime. Her Pseudomonas was sensitive to ceftazidime and other third-generation cephalosporin.
== END 2025-10-02 12:53 | disposition home or self-care (01) ==
PROVIDERS: Emergency Provider Emergency Medicine; PCP Nurse Practitioner Family
DX: N39.0 Urinary tract infection, site not specified (principal); W19.XXXA Unspecified fall, initial encounter
CPT/HCPCS: 99283; 99284; 36415; 80053; 82550; 87077; 96361; 96365; 72131; 72192; 81003; 81015; 83735; 85025; 85610; 87086; 87186; J0696